=== PATIENT | female | born 1960 | race Caucasian/White ===

== ENCOUNTER → 2017-05-26 12:41 | Outpatient (CLI) | payer BC, SELFPAY ==
--- NOTE | 2017-05-26 12:44 | HPBI_ITS ---
MAMMOGRAPHY - BILATERAL SCREENING 3-D SALLY SYNTHESIS REASON FOR EXAM: Female, 57 years old. Bilateral Screening 3-D tomosynthesis PERTINENT HISTORY: No significant family history. TECHNIQUE: 2-D mammograms and 3-D Sally synthesis of the breast (s) were performed. CAD was performed. COMPARISON: 05/21/2016 and 12/28/2013 mammograms. FINDINGS: The breast composition is composed of scattered fibroglandular density. Scattered benign calcifications are seen. No dense spiculated masses or suspicious microcalcifications clusters are identified. No architectural distortion is identified. There is no adenopathy, skin thickening or nipple retraction identified. There has been no significant change since the prior study. HPBI/SCREENING MAMM (CAD), BILAT IMPRESSION: No mammographic signs of malignancy. Routine yearly mammograms recommended. ASSESSMENT CATEGORY: BIRADS Category 2: Benign. A letter regarding these results will be sent to the patient by the facility within 30 days. FOLLOW UP RECOMMENDATION: Yearly follow up mammogram recommended. (A) Approximately 10% of breast cancers are not detected by mammography. A normal mammogram should not delay biopsy of a clinically suspicious abnormality. Electronically Signed: Candido Casanova, at 20:48 EDT Tel , Service support ,
== END ==
PROVIDERS: Family Provider Internal Medicine; PCP Internal Medicine; Visit Provider Internal Medicine
DX: Z12.31 Encounter for screening mammogram for malignant neoplasm of breast (principal)
CPT/HCPCS: 77063; 77067

== ENCOUNTER → 2017-12-13 09:43 | Outpatient (CLI) | payer BC, SELFPAY ==
[2017-12-13 10:37] LABS: Hemoglobin A1c 5.2 % (4.2-6.3)
[2017-12-13 10:43] LABS: ALB/GLOB Ratio 1.1 RATIO (0.9-2.4); AST(SGOT) 12 U/L (15-37); Alanine Aminotransfer ALT/SGPT 17 U/L (13-56); Albumin, Serum 3.8 g/dL (3.2-5.0); Alkaline Phosphatase 58 U/L (45-117); Anion Gap 4 (5-15); BUN 14 mg/dL (7-18); BUN/Creat Ratio 16.8 RATIO (10-20); Calcium,Total 8.5 mg/dL (8.5-10.1); Chloride 107 mmol/L (98-107); Cholesterol 179 mg/dL (200); Creatinine, Serum 0.83 mg/dL (0.55-1.02); EST Glomerular Filtration Rate 75 mL/min (>60); Est Glom Filt Rate - Afr Amer 90 mL/min (>60); Globulin 3.4 g/dL (2.2-4.2); Glucose 90 mg/dL (74-106); High Density Lipoprotein 83 mg/dL; Potassium 4.1 mmol/L (3.5-5.1); Protein, Total 7.2 g/dL (6.4-8.2); Sodium Level 139 mmol/L (136-145); Triglycerides 44 mg/dL; Very Low Density Lipoprotein 9 mg/dL (5-40)
[2017-12-15 10:03] LABS: Vitamin B12 1057 pg/mL (211-911)
== END ==
PROVIDERS: Family Provider Internal Medicine; PCP Internal Medicine; Referring Provider Internal Medicine; Visit Provider Internal Medicine
DX: R73.09 Other abnormal glucose (principal); E53.8 Deficiency of other specified B group vitamins
CPT/HCPCS: 36415; 80053; 80061; 82607; 83036

== ENCOUNTER 2018-07-15 09:00 | Outpatient (RCR) | payer BC, SELFPAY ==
--- NOTE | 2018-06-17 13:23 | HP.PTEVAL ---
Patient's Visit Information KIM BLACKWOOD is a 58 year old F referred to Physical Therapy by Nayeli Roque DO with a diagnosis of LUMBAR RADICULOPATHY. Date of Evaluation: 06/17/18 Physical Therapist: Devante Goodman PT, Cert MDT, [facility] - Visit Plan Frequency: 2x /Week Duration: 4 Weeks Plan: INTERVENTIONS INCLUDE MANUAL THERAPY,JESSICA EX'S,DLS ABD /BACK,POSTURAL EX'S. MODALTIES - Subjective Findings: This 58 y/o female presents to physical therapy with lumbar radiculopathy for about 2 years. Intiatlly ,noticed lateral hip pain walking,then last years seen DR ludwin MATIAS. Symptoms intermittant ,but currently symptoms became worse in lumbar right > left lumbar to lateral hip to lateral leg/groin. Agrravating bending,lifting,housework tasks ,working, standing ,extending walking,sitting. Patient had x-rays .Patient had no prior treatment. Patient denies parathesia/tingling.Patient has left foot numbess from surgery. - Coughing/sneezing. Bowel/bladder -. Patient symptoms affect QOL and function. Patient pain impairs ADL'S and housework/JOB DEMNADS. SOCIAL: . VOCATION: [employer] - Pain Bilateral Back Pain Intensity (Out of 10): 10 Pain Intensity Range: 10 - Objective POSTURE: WFL. GAIT: normal aline. NEURO: ,reflexes L3-4,L4-5,L5-S1 2/3. SYMMTRIES: align. PALPATION: unremarkable. FLEXABLITY: hams min/mos tight,pirifirmis min tight. MMT: quads/hams 4-/5 right + anr,left 4/5,4-/5 hip flexion,ankle 4/5. LUMBAR ROM: flexion mod loss,extension mod loss,side glides mod loss - Special Tests L/S Slump test left side: Negative L/S Slump test right side: Negative L/S Left Straight Leg Raise: Negative L/S Right Straight Leg Raise: Negative Lumbar Standing: Flexion - Mechanical Response: No effect Lumbar Standing: Flexion - Symptoms During Testing: Increases Lumbar Standing: Flexion - Symptoms After Testing: Worse Lumbar Standing: Extension - Mechanical Response: No effect Lumbar Standing: Extension - Symptoms During Testing: Increases Lumbar Standing: Extension - Symptoms After Testing: No worse Lumbar Standing: Right Side Glides - Mechanical Response: No effect Lumbar Standing: Right Side [place] - Symptoms During Testing: No effect Lumbar Standing: Right Side [place] - Symptoms After Testing: No effect Lumbar Standing: Left Side [place] - Mechanical Response: No effect Lumbar Standing: Left Side [place] - Symptoms During Testing: No effect Lumbar Standing: Left Side [place] - Symptoms After Testing: No effect Lumbar Lying: Flexion - Mechanical Response: No effect Lumbar Lying: Flexion - Symptoms During Testing: No effect Lumbar Lying: Flexion - Symptoms After Testing: No effect Lumbar Lying: Extension - Mechanical Response: No effect Lumbar Lying: Extension - Symptoms During Testing: Decreases Lumbar Lying: Extension - Symptoms After Testing: Better - Goals Goal 1:: Independant with HEP Goal Time Frame: 4-6 Weeks Goal 2:: Patient to be Independant with posture/body mechanics Goal Time Frame: 4-6 Weeks Goal 3:: Patient to decrease pain by 50% or greater to improve function. Goal Time Frame: 4-6 Weeks Goal 4:: Patient to improve lumbar ROM for function of recovery. Goal Time Frame: 4-6 Weeks Goal 5:: Patient to improve strength BLE -HIPS TO 4/5 to improve strength/function. Goal Time Frame: 4-6 Weeks Goal 6:: Patient to improve back owestry score by 5-8 points to improve QOL. Goal Time Frame: 4-6 Weeks - Rehabilitation Potential Physical Therapy Diagnosis: This 58 y/o female presents to physical therapy with lumbar radiculopathy with possibel disc involvement with decrease lumbar ROM,pain ,weakness core/legs hips,tus beinifit from skilled PT. Rehabilitation Potential: Good - Anticipated Interventions Patient/Client Instruction: Educate patient on: Condition, Plan of Care For the Purpose of:: To decrease pain, To increase ROM, To improve muscle performance and motor function, To improve performance and independence with ADL's, To improve ability of physical actions for home/community/work/leisure, To improve health of tissue, To decrease soft tissue restriction, To increase flexibility/ROM, To reduce risk of recurrence, To improve ability to perform tasks related to life management Therapeutic Exercise to Include: Strength training, Body mechanics, Postural training, Flexibilty training, Dynamic Lumbar Stabilization, Jessica Exercises For the Purpose of:: To decrease pain, To improve muscle performance and motor function, To increase tolerance to activity/condition/position, To improve ability of physical actions for home/community/work/leisure, To improve gait and locomotor functions, To decrease soft tissue restriction, To increase flexibility/ROM, To reduce risk of recurrence, To improve ability to perform tasks related to life management Manual Therapy Techniques to Include: Mobilization Comment: LUMBAR For the Purpose of:: To decrease pain, To increase ROM, To increase oxygenation perfusion, To improve health of tissue, To decrease soft tissue restriction, To increase flexibility/ROM, To prevent re-injury, To improve ability to perform tasks related to life management TENS: Yes IF ES: Yes Cryotherapy (ice pack, ice massage): Yes Thermo therapy (hot pack): Yes Ultrasound (thermal/non thermal): Yes For the Purpose of:: To decrease pain, To increase ROM, To improve health of tissue, To decrease soft tissue restriction Thank you for the opportunity to evaluate your patient. For Medicare and Medicare HMO plans, please review the plan of care and approve it. It will need to be FAXED BACK to us at [phone] for Medicare purposes. For Medicare only, by signing this I certify the plan of care. Please let me know if there are questions or concerns regarding this plan of care. Physician Signature: Date:
--- NOTE | 2018-10-15 15:46 | HP.PT.NRP ---
HP - Discharge Summary (1) - Patient Information KIM BLACKWOOD was seen in my office for initial evaluation on 06/17/18. The following Plan of Care was established for this patient: Initial Frequency: 2x /Week Initial Duration: 4 Weeks - Anticipated Interventions Patient/Client Instruction: Educate patient on: Condition, Plan of Care For the Purpose of:: To decrease pain, To increase ROM, To improve muscle performance and motor function, To improve performance and independence with ADL's, To improve ability of physical actions for home/community/work/leisure, To improve health of tissue, To decrease soft tissue restriction, To increase flexibility/ROM, To reduce risk of recurrence, To improve ability to perform tasks related to life management Therapeutic Exercise to Include: Strength training, Body mechanics, Postural training, Flexibilty training, Dynamic Lumbar Stabilization, Jessica Exercises For the Purpose of:: To decrease pain, To improve muscle performance and motor function, To increase tolerance to activity/condition/position, To improve ability of physical actions for home/community/work/leisure, To improve gait and locomotor functions, To decrease soft tissue restriction, To increase flexibility/ROM, To reduce risk of recurrence, To improve ability to perform tasks related to life management Manual Therapy Techniques to Include: Mobilization Comment: LUMBAR For the Purpose of:: To decrease pain, To increase ROM, To increase oxygenation perfusion, To improve health of tissue, To decrease soft tissue restriction, To increase flexibility/ROM, To prevent re-injury, To improve ability to perform tasks related to life management TENS: Yes IF ES: Yes Cryotherapy (ice pack, ice massage): Yes Thermo therapy (hot pack): Yes Ultrasound (thermal/non thermal): Yes For the Purpose of:: To decrease pain, To increase ROM, To improve health of tissue, To decrease soft tissue restriction This patient was last seen in our office 07/15/18. Pertinent comments regarding their Physical therapy will appear below: Patient seen for PT for low back pain with PT focusing on JESSICA ex's ,DLS,lumbar traction. Patient had MRI after 9 visits then return to MD. At this point I will be discontinuing this patient from physical therapy. I would be happy to see this patient again in the future if found appropriate by the physician. Thank you! Devante Goodman, PT, Cert MDT, [facility]
== END 2018-07-15 19:00 | disposition home or self-care (01) ==
LOC: PT 09:00
PROVIDERS: Family Provider Internal Medicine; PCP Internal Medicine; Referring Provider Internal Medicine; Visit Provider Internal Medicine
DX: M54.16 Radiculopathy, lumbar region (principal)
CPT/HCPCS: 97012; 97014; 97032; 97035; 97110; 97162; G0283

== ENCOUNTER → 2018-07-16 16:40 | Outpatient (CLI) | payer BC, SELFPAY ==
--- NOTE | 2018-07-16 16:59 | MRI_ITS ---
STUDY: MRI LUMBAR SPINE WITHOUT CONTRAST REASON FOR EXAM: Female, 58 years old. Back pain shooting down right leg TECHNIQUE: Standardized fat and water weighted pulse sequences were obtained in the sagittal and axial planes. COMPARISON: Radiographic study on May 21, 2016 FINDINGS: T12-L1: Normal endplates. Normal disc height, hydration and morphology. Normal bilateral facet joints. Normal central canal and bilateral lateral recesses. Normal bilateral intervertebral neural foramina. Normal lumbar lordosis. There is no substantial scoliosis. Normal conus medullaris that terminates at the L1-2: Normal endplates. Normal disc height hydration and morphology. Normal bilateral facet joints. Normal central canal and bilateral lateral recesses. Normal bilateral intervertebral neural foramina L2-3: Normal endplates. Normal disc height, desiccation and minor annular bulge.. Normal bilateral facet joints. Normal central canal and bilateral lateral recesses. Normal bilateral intervertebral neural foramina. L3-4: Minor endplate spurring.. Normal disc height, desiccation and mild annular bulge.. Normal bilateral facet joints. Mild narrowing of the central canal. Normal bilateral recesses.. Mild bilateral neural foraminal encroachment. L4-5: Minor endplate spurring. Normal disc height, desiccation and mild annular bulge.. Bilateral facet arthropathy.. Mild narrowing of the central canal. Normal bilateral lateral recesses. Moderate bilateral neuroforaminal stenosis L5-S1: Degenerative endplate changes. Narrowed disc space with desiccation of disc and minor bulging of the annulus. Bilateral facet arthropathy. Normal central canal. Normal bilateral recesses. Moderate bilateral neuroforaminal stenosis. Normal visualized sacral ala. Normal visualized paraspinous soft tissue structures. MRI/Spine Lumbar (Routine) IMPRESSION: No evidence for acute fracture or subluxation. Spinal stenosis at L3-4, L4-5 and L5-S1 secondary to bulging annuli and facet arthropathy. Electronically Signed: Ronald Saleh MD at 18:14 EDT , Service support ,
== END ==
PROVIDERS: Family Provider Internal Medicine; PCP Internal Medicine; Referring Provider Internal Medicine; Visit Provider Internal Medicine
DX: M54.16 Radiculopathy, lumbar region (principal)
CPT/HCPCS: 72148

== ENCOUNTER → 2018-12-22 14:37 | Outpatient (CLI) | payer BC, SELFPAY ==
--- NOTE | 2018-12-22 14:38 | RAD_ITS ---
STUDY: X-RAY - LUMBAR SPINE REASON FOR EXAM: Female, 58 years old. Pain. TECHNIQUE: 4 view(s) of the lumbar spine were obtained. COMPARISON: None FINDINGS: Normal lumbar lordosis. There is no substantial scoliosis. There is a normal alignment of the vertebrae. There is multilevel endplate spondylosis of the lumbar vertebrae. There is multi-level degenerative disc disease with multi-level disc space narrowing. There is no evidence of acute fracture or loss of vertebral axial height. There is no alteration of alignment with flexion or extension. The soft tissue structures are unremarkable. RAD/L/S Spine Min 4 Views IMPRESSION: Degenerative changes of the spine, as detailed above. Electronically Signed: Cralos Collier DO at 20:30 EDT Tel [phone], Service support ,
== END ==
PROVIDERS: Family Provider Internal Medicine; PCP Internal Medicine; Referring Provider Orthopaedic Surgery; Visit Provider Orthopaedic Surgery
DX: M54.5 Low back pain (principal)
CPT/HCPCS: 72110

== ENCOUNTER 2019-01-08 08:11 | Outpatient (RCR) | payer BC, SELFPAY ==
--- NOTE | 2019-01-08 10:00 | HP.PTEVAL ---
Patient's Visit Information KIM BLACKWOOD is a 58 year old F referred to Physical Therapy by Dea Sarmiento MD with a diagnosis of B IT band syndrome. Date of Evaluation: 01/08/19 Physical Therapist: Guillaume Naylor, PT, ATC - Visit Plan Frequency: 1x/Week Duration: 1 Week Plan: Pt was issued a HEP routine and is I with HEP at this time. Discharge - Subjective Findings: Pt reports she has had B hip and LBP for 2 years. 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 Pt reports she is seeing a doctor for injections for her LBP, but also has pain in B hips which has been diagnosed as bursitis. 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 Pt reports she has had PT in the past which only resulted in temporary benefits. Pt notes occasional B LE radiculopathy the extends to the mid calf region. sleep difficulty secondary to pain. Pt notes she has had an MRI which revealed degenerative changes. 4/10 at rest, much more at worst 10/10 - Pain LBP Pain Intensity (Out of 10): 4 Pain Intensity Range: 10 - Objective Neuro: B LE sensation is WNL to lght touch. B patellar reflex= 2/3. MMT: B LE's are rated at 4/5 and are limited with LBP. Palpation: Pt is verry sore along distribution of B IT bands. No obvious deformity noted. L/S ROM: WNL. 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 For Medicare and Medicare HMO plans, please review the plan of care and approve it. It will need to be FAXED BACK to us at [phone] for Medicare purposes. For Medicare only, by signing this I certify the plan of care. Please let me know if there are questions or concerns regarding this plan of care. Physician Signature: Date:
== END 2019-01-08 17:00 | disposition home or self-care (01) ==
LOC: PT 08:11
PROVIDERS: Family Provider Internal Medicine; PCP Internal Medicine; Referring Provider Orthopaedic Surgery; Visit Provider Orthopaedic Surgery
DX: M70.61 Trochanteric bursitis, right hip (principal); M70.62 Trochanteric bursitis, left hip; M54.10 Radiculopathy, site unspecified
CPT/HCPCS: 97161

== ENCOUNTER → 2019-01-14 08:00 | Outpatient (CLI) | payer BC, SELFPAY ==
--- NOTE | 2019-01-14 08:03 | BI_ITS ---
MAMMOGRAPHY - BILATERAL SCREENING REASON FOR EXAM: Female, 58 years old. Routine annual screening examination. PERTINENT HISTORY: Non-contributory. TECHNIQUE: Digital bilateral breast sally (3D mammographic acquisition) in the CC and MLO projections. 2-D mediolateral oblique (MLO) and craniocaudad (CC) views of both breasts were obtained. CAD: Full Field Digital Mammography with Computer Added Detection was performed. COMPARISON: Comparison is made with prior study of May 26, 2017 and May 21, 2016. FINDINGS: Breast Composition: There are scattered areas of fibroglandular density. There are no dominant masses or suspicious calcifications. No other significant abnormalities are identified. There has been no significant change since the prior study. BI/SCREEN MAMM (CAD) W/SALLY BILAT IMPRESSION: Stable bilateral screening mammogram. Yearly follow-up mammogram recommended. (A) ASSESSMENT CATEGORY: BIRADS Category 1: Negative. A letter regarding these results will be sent to the patient by the facility within 30 days. Approximately 10% of breast cancers are not detected by mammography. A normal mammogram should not delay biopsy of a clinically suspicious abnormality. [id number] Electronically Signed: Chaparro Montoya, at 9:35 EST , Service support ,
== END ==
PROVIDERS: Family Provider Internal Medicine; PCP Internal Medicine; Referring Provider Internal Medicine; Visit Provider Internal Medicine
DX: Z12.31 Encounter for screening mammogram for malignant neoplasm of breast (principal)
CPT/HCPCS: 77063; 77067

== ENCOUNTER 2020-05-26 16:34 | Outpatient (RCR) | payer BC, SELFPAY | END 2020-05-26 23:59 | LOC: IMMUN 16:34 | PROVIDERS: Referring Provider Family Medicine; Visit Provider Family Medicine | DX: Z23 Encounter for immunization (principal) | CPT/HCPCS: 0001A; 91300 ==

== ENCOUNTER → 2022-06-06 | Outpatient (CLI) | payer BC, SELFPAY ==
--- NOTE | 2022-06-06 09:19 | BI_ITS ---
MAMMOGRAPHY - BILATERAL SCREENING REASON FOR EXAM: Female, 62 years old. Routine annual screening examination. PERTINENT HISTORY: Non-contributory. TECHNIQUE: Digital bilateral breast sally (3D mammographic acquisition) in the CC and MLO projections. 2-D mediolateral oblique (MLO) and craniocaudad (CC) views of both breasts were obtained. CAD: Full Field Digital Mammography with Computer Added Detection was performed. COMPARISON: Comparison is made with prior study of January 14, 2019 and May 26, 2017. FINDINGS: Breast Composition: There are scattered areas of fibroglandular density. There are no dominant masses or suspicious calcifications. No other significant abnormalities are identified. There has been no significant change since the prior study. BI/SCRN MAMM (CAD)W/SALLY BILAT IMPRESSION: Stable bilateral screening mammogram. Yearly follow-up mammogram recommended. (A) ASSESSMENT CATEGORY: BIRADS Category 1: Negative. A letter regarding these results will be sent to the patient by the facility within 30 days. Approximately 10% of breast cancers are not detected by mammography. A normal mammogram should not delay biopsy of a clinically suspicious abnormality. [id number] Electronically Signed: Chaparro Montoya MD at 10:37 EDT ,
--- NOTE | 2022-06-06 09:20 | BD_ITS ---
STUDY: DUAL ENERGY X-RAY ABSORPTIOMETRY / DXA REASON FOR EXAM: Female, 62 years old. [id number] -- postmenopausal TECHNIQUE: Bone Mineral Density (BMD) measurements of lumbar spine and bilateral hips were obtained. COMPARISON: Comparison is made with prior study dated May 21, 2016. FINDINGS: Lumbar Spine (L1-L4): g/cm2 (0.910) / T-score (-1.2) / Z-score (0.4) Findings are suggestive of osteopenia with a low fracture risk. Left Femur Total: g/cm2 (0.893) / T-score (-0.4) / Z-score (0.7) Left Femoral Neck: g/cm2 (0.726) / T-score (-1.1) / Z-score (0.3) Right Femur Total: g/cm2 (0.831) / T-score (-0.9) / Z-score (0.2) Right Femoral Neck: g/cm2 (0.851) / T-score (0.0) / Z-score (1.4) The T-Scores on the most recent prior examination were: Lumbar Spine (L1-L4): There has been worsening of bone density since the previous examination. Left Femur Total: which represents a worsening of 5.1%. Right Femur Total: which represents a worsening of 8.7%. BD/Dexa Bone Density Study IMPRESSION: The patient is considered osteopenic as outlined below according to World [place] Organization (WHO) criteria with a low fracture risk. There has been worsening of bone density since the previous examination. Reference Information: The T-score is the number of standard deviations above or below the standard which is normal for young adults at their peak bone mineral density. The World Health Organization (WHO) interprets the T-scores as follows: Above -1 Normal bone density Between -1 and -2.5 Osteopenia Equal to / or below -2.5 Osteoporosis As a practical clinical guideline, osteopenia may be graded as follows: Mild -1 through -1.5 Moderate -1.6 through -2.0 Severe -2.1 through -2.4 The Z-score is the number of standard deviations above or below age-matched controls. A Z-score of less than -1.5 would be considered abnormal. References: 1. NIH Osteoporosis and Related Bone Diseases www osteo.org 2. International Society for Clinical Densitometry www iscd.org 3. National Osteoporosis Foundation www nof.org Electronically Signed: Chaparro Montoya MD at 12:44 EDT ,
== END | disposition home or self-care (01) ==
LOC: OPBD 09:18
PROVIDERS: PCP Internal Medicine; Visit Provider Internal Medicine
DX: Z13.820 Encounter for screening for osteoporosis (principal); Z78.0 Asymptomatic menopausal state; Z12.31 Encounter for screening mammogram for malignant neoplasm of breast
CPT/HCPCS: 77063; 77067; 77080

== ENCOUNTER → 2023-10-29 | Outpatient (CLI) | payer BC, SELFPAY ==
--- NOTE | 2023-10-29 08:43 | BI_ITS ---
MAMMOGRAPHY - BILATERAL SCREENING REASON FOR EXAM: Female, 63 years old. Routine annual screening examination. PERTINENT HISTORY: Non-contributory. TECHNIQUE: Digital bilateral breast sally (3D mammographic acquisition) in the CC and MLO projections. 2-D mediolateral oblique (MLO) and craniocaudad (CC) views of both breasts were obtained. CAD: Full Field Digital Mammography with Computer Added Detection was performed. COMPARISON: Comparison is made with prior study June 06, 2022 and January 14, 2019. FINDINGS: Breast Composition: There are scattered areas of fibroglandular density. There are no dominant masses or suspicious calcifications. No other significant abnormalities are identified. There has been no significant change since the prior study. BI/SCRN MAMM (CAD)W/SALLY BILAT IMPRESSION: Stable bilateral screening mammogram. Yearly follow-up mammogram recommended. (A) ASSESSMENT CATEGORY: BIRADS Category 1: Negative. A letter regarding these results will be sent to the patient by the facility within 30 days. Approximately 10% of breast cancers are not detected by mammography. A normal mammogram should not delay biopsy of a clinically suspicious abnormality. [id number] Electronically Signed: Chaparro Montoya MD at 9:33 EDT ,
== END | disposition home or self-care (01) ==
LOC: OPBI 08:40
PROVIDERS: PCP Internal Medicine; Referring Provider Internal Medicine; Visit Provider Internal Medicine
DX: Z12.31 Encounter for screening mammogram for malignant neoplasm of breast (principal)
CPT/HCPCS: 77063; 77067

== ENCOUNTER → 2024-11-22 | Outpatient (CLI) | payer BC, SELFPAY ==
--- NOTE | 2024-11-22 13:19 | BI_ITS ---
EXAM: SCRN MAMM (CAD)W/SALLY BILAT DATE: 11/22/2024 CLINICAL HISTORY: F, Age 64 y/o , BILAT BRST SCREEN SALLY ADD-ON TECHNIQUE: Procedure Code: [id number] Modality: MG Procedure: SCRN MAMM (CAD)W/SALLY BILAT COMPARISON: Prior exam(s) were compared FINDINGS: TISSUE DENSITY: The breasts are heterogeneously dense, which may obscure small masses. Bilateral Breast Mammographic Findings: No suspicious masses, calcifications or other abnormalities are identified. BI/SCRN MAMM (CAD)W/SALLY BILAT IMPRESSION: No mammographic evidence of malignancy in either breast. OVERALL FINAL ASSESSMENT BI-RADS 1: NEGATIVE. RECOMMENDATION: Routine annual follow-up in 1 Year Additional Recommendation none A letter with findings and recommendations will be mailed to the patient. Reading Location: [id number]
== END | disposition home or self-care (01) ==
LOC: OPBI 13:18
PROVIDERS: PCP Internal Medicine; Referring Provider Internal Medicine; Visit Provider Internal Medicine
DX: Z12.31 Encounter for screening mammogram for malignant neoplasm of breast (principal)
CPT/HCPCS: 77063; 77067

== ENCOUNTER → 2024-11-29 | Outpatient (CLI) | payer BC, SELFPAY ==
--- OUTSIDE RECORDS SUMMARY | 2024-11-23 12:40 | XMS RPT_ITS ---
Author Name Auto Generated Organization OHIP Care Team Providers Care Coronary Clinical Specialist Name Role Phone JOSH ROCHA Attending Unavailable SCANNING, GENERIC PROVIDER Referring Unava ilable FAST, GISELA A Primary Care Unavailable JOSH ROCHA Referring Unavailable FAST, GISELA A Primary Care Unavailable JOSH ROCHA Attending Unavailable FAST, GISELA A Primary Care Unavailable JOSH ROCHA Attending Unavailable FAST, GISELA A Primary Care Unavailable OJSH ROCHA Admitting Unavailable JOSH ROCHA Attending Unavailable FAST, GISELA A Primary Care Unavailable JOSH ROCHA Referring Unavailable FAST, GISELA A Primary Care Unavailable CLINT CARRERO Referring Unavailable FAST, GISELA A Primary Care Unavailable FAST, GISELA A Primary Care Unavailable CLINT CARRERO Referring Unavailable FAST, GISELA A Primary Care Unavailable JOSH ROCHA Referring Unavailable FAST, GISELA A Primary Care Unavailable JOSH ROCHA Referring Unavailable FAST, GISELA A Primary Care Unavailable FAST, GISELA A Primary Care Unavailable DEVYN GARCIA Admitting Unavailable BON ELENA Attending Unavailable BLANCA WALSH Consulting Unavailable PATSY NG Referring Unavailable FAST, GISELA A Primary Care Unavailable PROBLEMS DATE TYPE CONDITION / CODE ATTENDING STATUS [facility] 11/23/2024 Active Pulmonary HTN (H CC) / I27.20(ICD-10) NA Active [facility] 08/18/2024 Admitting Diagnosis Unilateral primary osteoarthritis, right hip / M16.11(ICD-10) JOSH ROCHA [facility] 10/01/2024 Admitting Diagnosis Pain in right knee / M25.561(ICD-10) JOSH ROCHA [facility] 10/01/2024 Admitting Diagnosis Pain in left knee / M25.562(ICD-10) JOSH ROCHA [facility] 10/01/2024 Admitting Diagnosis Other chronic pain / G89.29(ICD-10) JOSH ROCHA [facility] 08/20/2024 Active Bilateral pulmon arcenio embolism (HCC) / I26.99(ICD-10) BON ELENA Active [facility] 08/20/2024 Active Acute pulmonary embolism, unspecified pulmonary embolism type, unspecified whether acute cor pulmonale present (HCC) / I26.99(ICD-10) [facility] 08/20/2024 Active Shortness of josue ath / R06.02(ICD-10) [facility] 08/20/2024 Active Syncope, unspeci fied syncope type / R55(ICD-10) [facility] 07/28/2024 Admitting Diagnosis Encounter for other preprocedural examination / Z01.818(ICD-10) NA [facility] 06/18/2024 Admitting Diagnosis Pain in right hip / M25.551(ICD-10) JOSH ROCHA [facility] PROCEDURES No Procedure Records Found RESULTS ECHO Observed: 11/23/2024 12:57 PM Status: F Source: [facility] Echocardiography Report: Tra nsthoracic Echo [facility] Date of service: 11/23/2024 12:57:39 PM [employer]ER Ordering physician: PATSY NG Exam indication: PE Technologist: Marisela Strange RD Interpreting physician: Gilberto Meier MD PATIENT: Name: BEKAH SALGADO : 1960 Age: 64 years Gender: F Primary rhythm: sinus. Height: 182.90 cm BSA: 2.27 m Weight: 101.00 kg BMI: 30.2 kg/m Heart rate 76 bpm Blood pressure 130/79 mmHg Technically difficult exam due to body habitus. Color Doppler was utilized to interrogate the cardiac valves assessed and spectral Doppler was utilized to determine the flow velocities and pressure gradients reported in this exam. Myocardial strain analysis was performed in this exam to aid in the assessment of cardiac function. MEASUREMENTS: Value Indexed Normal Max aortic dimension 3.2 cm Ao < 3.8 Left atrial volume 50 ml (biplane A-L) 22 ml/m Simon <= 34 LV ID (diastole) 4.4 cm (2D) 1.92 cm/m LV ID (systole) 2.4 cm (2D) 1.08 cm/m IVS, leaflet tips 0.9 cm (2D) Posterior wall thickness 0.9 cm (2D) Left ventricular mass 127 g (2D) 56 g/m Global peak long strain -18.0 % LV stroke volume 50 ml (2D biplane) LV end diastolic volume 81 ml (2D biplane) 35.8 ml/m 29<=EDVi<62 LV end systolic volume 31 ml (2D biplane) 13.6 ml/m Ejection Fraction 62 % (2D biplane) EF > 54 FINDINGS: LEFT VENTRICLE The left ventricle is normal in size. Left ventricular systolic function is normal. Global LV myocardial strain is normal. Grade I left ventricular diastolic dysfunction. Mitral annular lateral E/e': 3.6. Mitral annular septal E/e': 6.2. Wall Motion: All scored segments are normal. RIGHT VENTRICLE The right ventricle is normal in size. Right ventricular systolic function is normal. RV systolic tissue Doppler velocity is 14.0 cm/s. Tricuspid annular displacement is 1.9 cm. Estimated right ventricular systolic pressure is 23 mmHg consistent with normal pulmonary artery pressures. Estimated right atrial pressure is 3 mmHg (although IVC not seen). LEFT ATRIUM The left atrial cavity is normal in size. RIGHT ATRIUM The right atrial cavity is normal in size (RA area = 14.2 cm ) . Inferior Vena Cava: The inferior vena cava appears normal measuring 1.70 cm. MITRAL VALVE The mitral valve leaflets are structurally normal. There is no mitral valve regurgitation. The pressure half time is 63 msec. The peak mitral E/A ratio is 0.76. The average mitral E/e' ratio is 4.9. The mitral flow deceleration time is 218 msec. TRICUSPID VALVE The tricuspid valve leaflets are structurally normal. There is trace (trace - 1+) tricuspid valve regurgitation. AORTIC VALVE The aortic valve cusps are structurally normal. There is no aortic valve regurgitation. Tricuspid aortic valve. The peak gradient is 6 mmHg (peak velocity = 124.8 cm/s). PULMONIC VALVE The pulmonic valve cusps are structurally normal. There is no pulmonic valve regurgitation. AORTA The visualized aorta is normal in size. Measurements - Mid ascending aorta 3.2 cm. INTERATRIAL SEPTUM There is no evidence of intracardiac shunting as detected by Doppler. PERICARDIUM There is no pericardial effusion. There is an epicardial fat pad. CONCLUSIONS: - Technically difficult exam due to body habitus. - Exam indication: PE - The left ventricle is normal in size. Left ventricular systolic function is normal. EF = 62 5% (2D biplane) Grade I left ventricular diastolic dysfunction. - The right ventricle is normal in size. Right ventricular systolic function is normal. - There are no significant valvular abnormalities. - The patient has not had a prior CC echocardiographic exam for comparison. * * * Final * * * CC [facility] Image : [id number] XR KNEE 4+ VIEWS BILATERAL Observed: 03/2024 9:01 AM Status: F Source: [facility] Interpreted By: Sujey Gordon, STUDY: Bilateral knees, 4 views each. INDICATION: Signs/Symptoms:PAIN. COMPARISON: None. ACCESSION NUMBER(S): [id number] ORDERING CLINICIAN: JOSH ROCHA FINDINGS: No acute fracture or malalignment of the bilateral knees. Bilateral knee joint spaces are maintained. No significant joint effusion bilaterally. Mild bilateral medial and patellofemoral compartment osteoarthrosis with osteophytes. IMPRESSION: 1. Mild bilateral medial and patellofemoral compartment osteoarthrosis with osteophytosis. MACRO: None. Signed by: Nancy Gordon 10/02/2024 8:18 AM Dictation workstation: [id number] XR HIP RIGHT WITH PELVIS WHEN PERFORMED 2 OR 3 VIEWS Observed: 10/01/2024 8:28 AM Status: F Source: [facility] Interpreted By: Sujey Gordon, STUDY: Single view pelvis. Two views right hip. INDICATION: Signs/Symptoms:AFTERCARE R HIP REPLACEMENT/OSTEOARTHRITIS COMPARISON: XR PELVIS 1-2 VIEWS 08/18/2024. ACCESSION NUMBER(S): [id number] ORDERING CLINICIAN: JOSH ROCHA FINDINGS: No acute fracture or malalignment. Patient is status post right total hip arthroplasty. No perihardware fractures or lucencies. Alignment is anatomic. Left hip joint space is well maintained. IMPRESSION: 1. Right total hip arthroplasty without hardware complication. MACRO: None. Signed by: Nancy Gordon 10/02/2024 8:17 AM Dictation workstation: [id number] PROGRESS Observed: 08/22/2024 4:31 PM Status: COMPLETED Source: [facility] HNO ID: [id number] Author: BON ELENA MD Service: Hospital Medicine Author Type: Physician Type: Progress Notes Filed: 08/24/2024 16:19 Note Text: Documentation Query Please specify a diagnosis associated with the Clinical Indicators for this patient Obesity Class 1 This document will become part of the patient's medical record. NURSING PROG Observed: 08/22/2024 4:17 PM Status: COMPLETED Source: [facility] HNO ID: [id number] Author: JOSE ALBERTO SPAULDING RN Service: ADT-MICU Author Type: Registered Nurse Type: Nursing Progress Note Filed: 08/22/2024 16:18 Note Text: Pt AND Louie given D/c instructions [facility] to main lobby, picked pt up CASE MANAGEM Observed: 08/22/2024 4:04 PM Status: COMPLETED Source: [facility] HNO ID: [id number] Author: NUSRAT SHAH RN Service: Care Management Author Type: Registered Nurse Type: Care Mgt Progress Note Filed: 08/22/2024 16:05 Note Text: CARE MANAGEMENT DISCHARGE NOTE SERVICE DATE: August 22, 2024 SERVICE TIME: 4:04 PM Admission Date: 08/20/2024 LOS: 2 days Discharge Arrangement Discharge Arrangement: Home with Home Health Services Arranged Medical Services: Skilled Home Health Care Type: Home Health Agency Provider Name: [facility] (For [facility] Facilities Only) [phone] Caregiver Assessment Caregiver is ready, willing and able to meet the patient's needs as recommended by the inter-professional team: Yes Name of Caregiver: spouse Transportation Arrangements Transportation Arrangements: Car Handoff Communication: Handoff to: Primary Care Physician Primary Care Physician Name/Phone: Gisela Roque DO PCP - General, Internal Medicine Since 08/20/2024 Additional Information: Patient to discharge home with [facility]. Family to transport. SIGNATURE: Nusrat Shah RN PATIENT NAME: Bekah Salgado DATE: August 22, 2024 TIME: 4:04 PM PT ED Observed: 08/22/2024 3:24 PM Status: COMPLETED Source: [facility] HNO ID: [id number] Author: SOLA MILNER RPh Service: Pharmacy Author Type: Pharmacist Type: Patient Education Filed: 08/22/2024 15:52 Note Text: PHARMACY ANTICOAGULATION EDUCATION Patient Name: Bekah Salgado Account #: Data Unavailable Admission Date: 08/20/2024 2:07 AM Date of Contact: August 22, 2024 Time of Contact: 3:24 PM Patient anticipated to be discharged on Apixaban as oral anticoagulation therapy. Anticoagulant history: Patient is new to anticoagulation therapy Indication for oral anticoagulation: deep vein thrombosis (DVT) and pulmonary embolus (PE) Anticoagulant education status: Patient received full anticoagulation education Reason for taking anticoagulation How this anticoagulant works When to take medication and what to do if a dose is missed Drug interactions (Rx, OTC, herbal) and importance of notifying the doctor with any changes Do not take or discontinue any medication or over the counter medication except on the advice of the physician or pharmacist Signs/symptoms of bleeding and what to do if they occur Precautionary measures to decrease trauma/bleeding Signs/symptoms of thrombosis and what to do if they occur Need to limit or avoid alcohol consumption Carrying identification Importance of notifying healthcare provider when hospitalizations occur and when another healthcare provider has asked them to stop/hold anticoagulation medication before any procedure Importance of notifying all healthcare providers they are taking an anticoagulant Use of control measures, if applicable The importance of taking anticoagulation medication as instructed and the potential ramifications of non-compliance were explained to the patient The patient was provided supplemental material which includes the following topics: side effects, potential adverse drug reactions, drug interactions, compliance issues, follow-up with physician, and follow-up monitoring. Sola Milner RPh CNDS Observed: 08/22/2024 3:18 PM Status: COMPLETED Source: [facility] HNO ID: [id number] Author: BON ELENA MD Service: Hospital Medicine Author Type: Physician Type: Discharge Summary Filed: 08/22/2024 15:23 Note Text: DISCHARGE SUMMARY PATIENT NAME: Bekah Salgado ADMISSION DATE: 08/20/2024 DISCHARGE DATE: 08/22/2024 Attending Physician: Bon Elena MD Reason for Hospitalization: shortness of breath Principal Problem: Bilateral pulmonary embolism (HCC) (POA: Yes) Active Problems: Acute cor pulmonale (HCC) (POA: Unknown) Acute hypoxemic respiratory failure (HCC) (POA: Unknown) S/P total right hip arthroplasty (POA: Unknown) Lactic acidosis (POA: Unknown) Deep vein thrombosis (DVT) of proximal lower extremity (HCC) (POA: Unknown) Resolved Problems: * No resolved hospital problems. * Operations During Hospitalization: None Procedures During Hospitalization: Echocardiogram Hospital Course: Patient is a pleasant 64-year-old female with past medical history of osteoarthritis and hyperlipidemia, recent right hip total arthroplasty. [facility] on 08/18 presented to the ER with worsening shortness of breath and near syncopal event. Patient was noted to be hypoxic in the ER. Further workup with CT study showed bilateral pulmonary emboli. PERT team was called and patient was initially admitted to medical intensive care unit. Lower extremity Doppler showed right lower extremity calf DVT. Echocardiogram done showed LVEF of 68% with moderate pulmonary hypertension with no evidence of right heart strain. Patient seen by vascular surgeon and recommended no mechanical thrombectomy as patient remained stable. X-rays of the right hip showed no acute postsurgical complication. Patient seen by orthopedics and recommended weightbearing as tolerated. As patient remained hemodynamically stable heparin was switched to Eliquis at discharge. Patient remained comfortable on room air. She is evaluated by PT/OT who recommended home with home care at discharge. Patient was recommended to follow-up with pulmonology and will need a repeat echocardiogram in 3 months. Labs and Procedures Pending at Discharge: No pending results. Consulting Teams During Hospitalization: Surgery : Vascular and Orthopaedics Patient Condition @ Discharge: Stable Discharge Disposition: Home with Home Health FOLLOW UP: with PCP in 1 week I Discharge Medications: Medication List START taking these medications ELIQUIS DVT-PE TREAT 30D START 5 mg (74 tabs) Generic drug: apixaban Take 2 tablets (10 mg) by mouth twice daily for 7 days. Then take 1 tablet (5 mg) by mouth twice daily for 23 days CONTINUE taking these medications acetaminophen 500 mg tablet Commonly known as: TYLENOL ARGININE (L-ARGININE) ORAL BIOTIN ORAL cyanocobalamin (vitamin B-12) 2,000 mcg Tab docusate sodium 100 mg capsule Commonly known as: COLACE Fish OiL 1,000 (120-180) mg Cap Generic drug: Jllqx-0-IAB-EPA-Fish Oil oxyCODONE IR 5 mg immediate release tablet Commonly known as: ROXICODONE pantoprazole DR 40 mg tablet Commonly known as: PROTONIX polyethylene glycol 3350 17 gram packet TURMERIC ORAL Vitamin D 1,000 unit Tab tablet Generic drug: cholecalciferol STOP taking these medications Aspirin 81 mg Tab meloxicam 15 mg tablet Commonly known as: MOBIC traMADol 50 mg tablet Commonly known as: ULTRAM Where to Get Your Medications These medications [id number] [place] [address] - [address] [facility] - [phone] ACROSS FROM [address] [address] ELIQUIS DVT-PE TREAT 30D START 5 mg (74 tabs) I have performed the rkrm-av-jesl and relevant services for a total of 45 minutes. Highest Readmission Risk Score: 9 The 30 day readmissions risk score is derived from an internally validated risk model which evaluates patient level characteristics, utilization history, medication orders and lab results up until the day of discharge. Patients with a score of 39 or above are considered highest risk for readmission. Specific patient level drivers will be listed at the bottom of the summary. The 30 day readmissions risk score is derived from an internally validated risk model which evaluates patient level characteristics, utilization history, medication orders and lab results up until the day of discharge. Patients with a score of 40 or above are considered highest risk for readmission. Specific patient level drivers will be listed at the bottom of the summary. SIGNATURE: Bon Elena MD PAGER: DATE: August 22, 2024 TIME: 3:18 PM PROGRESS Observed: 08/22/2024 3:00 PM Status: COMPLETED Source: [facility] HNO ID: [id number] Author: BON ELEAN MD Service: Hospital Medicine Author Type: Physician Type: Progress Notes Filed: 08/22/2024 15:02 Note Text: INPATIENT PROGRESS NOTE CHIEF COMPLAINT: shortness of breath INTERVAL HPI: no new complaints. Pt stable on RA. Had some Right sided chest pain yest that is now improved No fever/chills/cough PHYSICAL EXAM: BP 119/68[after standing up, walking AND sitting down[ Pulse 92 Temp (Src) 97.9 (Axillary) Resp 18 Ht 6' 0" (1.83m) Wt 222 lb 10.6 oz (101.0kg) SpO2 98% BMI 30.19 kg/(m2). O2 Therapy: Room Air GENERAL: Alert, no distress, cooperative LUNGS: Lungs clear to auscultation, Good diaphragmatic excursion CARDIAC: Normal S1 and S2; no rubs, murmurs, or gallops ABDOMEN: Abdomen soft, non-tender, BS normal, No masses or organomegaly EXTREMITIES: no pitting edema DATA: Diagnostic tests reviewed for today's visit: CBC, Coags, BMP, Mg, Phos Recent Labs 08/22/24 0451 08/21/24 0410 08/20/24 1355 08/20/24 1125 08/20/24 0851 08/20/24 0259 08/20/24 0229 WBC 7.95 6.68 -- -- -- -- 9.72 HB 10.2* 9.7* -- -- -- -- 10.1* HCT 30.9* 29.3* -- -- -- -- 31.2* PLT 207 201 -- -- -- -- 213 INR -- -- -- -- -- 1.0 -- APTT -- -- 41.6* 135.0* >139.0* -- -- NA 139 142 -- -- -- -- 135* K 3.9 4.3 -- -- -- -- 3.7 CHLOR 103 108* -- -- -- -- 101 CO2 21* 24 -- -- -- -- 21* BUN 10 12 -- -- -- -- 20 CREAT 0.79 0.82 -- -- -- -- 1.07* GLUC 103* 88 -- -- -- -- 131* CA 8.6 8.6 -- -- -- -- 8.6 MG -- -- -- -- -- -- 2.1 P -- -- -- -- -- -- 3.2 Problem List Bilateral pulmonary embolism (HCC) (POA: Yes) Acute cor pulmonale (HCC) (POA: Status not on file) Acute hypoxemic respiratory failure (HCC) (POA: Status not on file) S/P total right hip arthroplasty (POA: Status not on file) Lactic acidosis (POA: Status not on file) Deep vein thrombosis (DVT) of proximal lower extremity (HCC) (POA: Status not on file) Assessment/Plan acute hypoxic respiratory failure - now resolved # Acute bilateral pulmonary embolism , # RLE calf DVT provoked from recent Right hip surgery- pt now on lovenox, therapeutic dose Will change to eliquis at DC Echo done shows LVEF 68% with moderate pulm HTN Seen by vascular surgery team- no need for mechanical thrombectomy Recommended rpt Echo in 3 months # recent right total hip arthroplasty # demand ischemia Pt worked with PT and recommending home with PT Plan for DC home with [facility] today Plan of care discussed with: Provider, RN, Patient. SIGNATURE: Bon Elena MD PATIENT NAME: Bekah Salgado DATE: August 22, 2024 TIME: 3:00 PM PAGER: SUE COTTRELL 1999 PNL SERPL Collected: 4:51 AM Status: F Source: [facility] Order Comment: Specimen Type : BLOOD SPECIMEN Ordering Facility: [facility] Address: [address] [place] [address] TYPE CODE TESTS RESULT OUT OF RANGE REFERENCE UNITS LAB 2345-7(LOINC) Glucose SerPl-mCnc 103 High 74-99 mg/dL Result Comment: The [place] Diabetes Association (ADA) provides guidance for cutoff values for fasting glucose and random glucose. The ADA defines fasting as no caloric intake for at least 8 hours. Fasting plasma glucose results between 100 to 125 mg/dL indicate increased risk for diabetes (prediabetes). Fasting plasma glucose results greater than or equal to 126 mg/dL meet the criteria for diagnosis of diabetes. In the absence of unequivocal hyperglycemia, results should be confirmed by repeat testing. In a patient with classic symptoms of hyperglycemia or hyperglycemic crisis, random plasma glucose results greater than or equal to 200 mg/dL meet the criteria for diagnosis of diabetes. Reference: Standards of Medical Care in Diabetes 2016, [place] [employer] Association. Diabetes Care. 2016.39(Suppl 1). LAB 3094-0(LOINC) BUN SerPl-mCnc 10 7-21 mg/ dL LAB 2160-0(LOINC) Creat SerPl-mCnc 0.79 0.58-0.96 mg/dL LAB 2951-2(LOINC) Sodium SerPl-sCnc 139 136-144 mmol/L LAB 2823-3(LOINC) Potassium SerPl-sCnc 3.9 3.7-5.1 mmol/L LAB 2075-0(LOINC) Chloride SerPl-sCnc 103 98-107 mmol/L LAB 8-9(LOINC) CO2 SerPl-sCnc 21 Low 22-30 mmo l/L LAB 1863-0(LOINC) Anion Gap4 SerPl-sCnc 15 8-15 mmol/L LAB 89108-7(LOINC) Calcium SerPl-mCnc 8.6 8.5-10.2 mg/dL LAB 84856-1(LOINC) Creatinine + eGFR Pnl SerPlBld 83 >=60 mL/min/1. 73m??? Result Comment: Estimated Gl omerular Filtration Rate (eGFR) is calculated using the 2020 CKD-EPI creatinine equation. This equation utilizes serum creatinine, sex, and age as parameters. The creatinine assay has traceable calibration to isotope dilution-mass spectrometry. Refer to KDIGO guidelines for clinical interpretation. In patients with unstable renal function, e.g. those with acute kidney injury, the eGFR may not accurately reflect actual GFR. Performed By: #### [id number] # ### [facility] CLIA [id number] [address] STATES OF [facility] CBC PNL BLD AUTO Collected: 08/22/2024 4:51 AM Statu s: F Source: [facility] Order Comment: Specimen Type : BLOOD SPECIMEN Ordering Facility: [facility] Address: [address] [place] [address] TYPE CODE TESTS RESULT OUT OF RANGE REFERENCE UNITS LAB 6690-2(LOINC) WBC # Bld Auto 7.95 3.70-11.00 k/uL LAB 789-8(LOINC) RBC # Bld Auto 3.28 Low 3.90-5.20 m/ uL LAB 718-7(LOINC) Hgb Bld-mCnc 10.2 Low 11.5-15.5 g/dL LAB 4544-3(LOINC) Hct VFr Bld Auto 30.9 Low 36.0-46.0 % LAB 787-2(LOINC) MCV RBC Auto 94.2 80.0-100.0 fL LAB 785-6(LOINC) MCH RBC Qn Auto 31.1 26.0-34.0 pg LAB 786-4(LOINC) MCHC RBC Auto-mCnc 33.0 30.5-36.0 g/dL LAB 93251-0(LOINC) RDW RBC-Rto 13.5 11.5-15.0 % LAB 777-3(LOINC) Platelet # Bld Auto 207 150-400 k/uL LAB 89292-8([facility]) PMV Bld Auto 10.7 9.0-12.7 fL LAB 771-6([facility] nRBC # Bld Auto <0.01 <0.01 k/uL Performed By: #### [id number] # ### [facility] CLIA [id number] [address] PLAN OF CARE Observed: 08/21/2024 3:07 PM Status: COMPLETED Source: [facility] HNO ID: [id number] Author: ?, ?, ? Service: ? Author Type: [employer] Type: Plan of Care Filed: 08/21/2024 15:29 Note Text: PHARMACY MEDICATION REVIEW Patient Name: Bekah Salgado : 1960 The following medications were updated within the [employer] medication list: Medications ADDED to [employer] medication list ARGININE, L-ARGININE, ORAL Patient Yes Yes BIOTIN ORAL Patient Yes Yes TURMERIC ORAL Patient Yes Yes Medications CHANGED on [employer] medication list polyethylene glycol 3350 17 gram packet Yes No Medications REMOVED from [employer] medication list zucoshna-rgjz-vvboh-oreg-capry (CANDICIDAL) 100 mg-150 mg- 50 mg-150 mg cap Adjust Sig - Block E-Cancel vit B complx-folic ac-C-biotin 1 mg-60 mg- 300 mcg tab Adjust Sig - Block E-Cancel Additional comments: I was able to talk with pt. and her Louie about her home medications. They were able verify the 13 medications recorded below on the [employer] list. Pt. states she has not started the miralax yet. Also the pt. is following a discharge medication list of instructions from [facility] from 08/18/2024. I have removed 2 OTC supplements from the [employer] list and added 3 OTC supplements (see above). I have noted a change to one medication (miralax). Medication history completed by historian. No nursing follow up needed. The below information represents the best possible medication history: Yes Medication history completed by: [place] Cashier: Tim Saba (Career Development Specialist) Source of history: Patient: Reliability of source: Appears reliable, clearly identified: Medication name, Medication dose, Medication route, and Medication frequency and Pharmacy records: [facility] Medication nonadherence identified: No barriers noted Reconciliation completed: No, pharmacist not yet reviewed Patient interested in Bedside Delivery Services or using [facility] OP Pharmacy at discharge? No Preferred outpatient pharmacy: [facility] - [place] [address] [address] [facility] [phone] [facility] - [place] [address] [address] [facility] [phone] Allergies: Monosodium Glutamate Other: See Comments Comment:Passes out Prior to Admission Medications Prescriptions Last Dose Informant Patient Reported? Taking? ARGININE, L-ARGININE, ORAL Patient Yes Yes Sig: Take 1 tablet by mouth once daily. Aspirin 81 mg tab Yes Yes Sig: Take 81 mg by mouth two times a day. BIOTIN ORAL Patient Yes Yes Sig: Take 1 capsule by mouth. Three times a week Dzzfh-1-VBD-EPA-Fish Oil (FISH OIL) 1,000 (120-180) mg cap Yes Yes Sig: Take 1 g by mouth once daily. TURMERIC ORAL Patient Yes Yes Sig: Take 1 capsule by mouth once daily. acetaminophen (TYLENOL) 500 mg tablet Yes Yes Sig: Take 1,000 mg by mouth every 6 hours as needed for pain. Take as directed with oxycodone cholecalciferol (VITAMIN D) 1,000 unit tab tablet Yes Yes Sig: Take 1,000 Units by mouth once daily. cyanocobalamin, vitamin B-12, 2,000 mcg tab Yes Yes Sig: Take 1 tablet by mouth once daily. docusate sodium (COLACE) 100 mg capsule Yes Yes Sig: Take 100 mg by mouth two times a day. meloxicam (MOBIC) 15 mg tablet Yes Yes Sig: Take 15 mg by mouth once daily. oxyCODONE IR (ROXICODONE) 5 mg immediate release tablet Yes Yes Sig: Take 5 mg by mouth four times daily. pantoprazole DR (PROTONIX) 40 mg tablet Yes Yes Sig: Take 40 mg by mouth once daily. polyethylene glycol 3350 17 gram packet Yes No Sig: Take 17 g by mouth once daily. Dissolve dose in 4 - 8 ounces of liquid and take as directed. traMADol (ULTRAM) 50 mg tablet Yes Yes Sig: Take 50 mg by mouth every 6 hours as needed for pain. Facility-Administered Medications: None Tim Saba (Career Development Specialist) phone [phone] 08/21/2024 PROGRESS Observed: 08/21/2024 1:12 PM Status: COMPLETED Source: [facility] HNO ID: [id number] Author: BON ELENA MD Service: Hospital Medicine Author Type: Physician Type: Progress Notes Filed: 08/21/2024 13:31 Note Text: INPATIENT PROGRESS NOTE CHIEF COMPLAINT: shortness of breath INTERVAL HPI: no new complaints. Seen in MICU. Pt today feels ok. Says felt dizzy when working with therapist No CP/Shortness of Breath at rest PHYSICAL EXAM: BP 101/67 Pulse 89 Temp (Src) 98.1 (Oral) Resp 16 Ht 6' 0" (1.83m) Wt 220 lb 7.4 oz (100.0kg) SpO2 96% BMI 29.89 kg/(m2). O2 Therapy: (S) Room Air GENERAL: Alert, no distress, cooperative LUNGS: Lungs clear to auscultation, Good diaphragmatic excursion CARDIAC: Normal S1 and S2; no rubs, murmurs, or gallops ABDOMEN: Abdomen soft, non-tender, BS normal, No masses or organomegaly EXTREMITIES: no edema DATA: Diagnostic tests reviewed for today's visit: CBC, Coags, BMP, Mg, Phos Recent Labs 08/21/24 0410 08/20/24 1355 08/20/24 1125 08/20/24 0851 08/20/24 0259 08/20/24 0229 WBC 6.68 -- -- -- -- 9.72 HB 9.7* -- -- -- -- 10.1* HCT 29.3* -- -- -- -- 31.2* PLT 201 -- -- -- -- 213 INR -- -- -- -- 1.0 -- APTT -- 41.6* 135.0* >139.0* -- -- NA 142 -- -- -- -- 135* K 4.3 -- -- -- -- 3.7 CHLOR 108* -- -- -- -- 101 CO2 24 -- -- -- -- 21* BUN 12 -- -- -- -- 20 CREAT 0.82 -- -- -- -- 1.07* GLUC 88 -- -- -- -- 131* CA 8.6 -- -- -- -- 8.6 MG -- -- -- -- -- 2.1 P -- -- -- -- -- 3.2 Problem List Bilateral pulmonary embolism (HCC) (POA: Yes) Acute cor pulmonale (HCC) (POA: Status not on file) Acute hypoxemic respiratory failure (HCC) (POA: Status not on file) S/P total right hip arthroplasty (POA: Status not on file) Lactic acidosis (POA: Status not on file) Deep vein thrombosis (DVT) of proximal lower extremity (HCC) (POA: Status not on file) Assessment/Plan # acute hypoxic respiratory failure - now resolved # Acute bilateral pulmonary embolism , # RLE calf DVT provoked from recent Right hip surgery- pt now on lovenox, therapeutic dose Will change to eliquis at DC Echo done shows LVEF 68% with moderate pulm HTN Seen by vascular surgery team- no need for mechanical thrombectomy # recent right total hip arthroplasty # demand ischemia Pt worked with PT and recommending home with PT Anticipate DC in am if stable Desat study prior to DC Plan of care discussed with: Provider, RN, Patient. SIGNATURE: Bon Elena MD PATIENT NAME: Bekah Salgado DATE: August 21, 2024 TIME: 1:12 PM PAGER: PROGRESS Observed: 08/21/2024 11:08 AM Status: COMPLETED [facility] [id number] Author: PATSY NG APRN.ASHLEY Service: Pulmonary Disease Author Type: Nurse Practitioner Type: Progress Notes Filed: 08/21/2024 11:20 Note Text: PULMONARY PROGRESS NOTE [facility] SERVICE DATE: August 21, 2024 SERVICE TIME: 11:08 AM Subjective Patient seen and examined today for pulmonary follow-up Patient is still bedded in ICU, though is floor status She complains of dizziness/lightheadedness upon getting up out of bed Additionally she complains of right hip pain Patient denies any wheezing, cough, phlegm, hemoptysis, chest pain, fevers or chills. Objective OBJECTIVE Current Facility-Administered Medications Medication Dose Route Frequency Provider Last Rate Last Admin iv contrast (radiology procedure) INTRAVENOUS DIRECTED PRKit Cervantes DO NaCl 0.9% iv flush bag 20 mL INTRAVENOUS PRN Kit Clark DO oxyCODONE-acetaminophen 5-325 mg 1-2 tablet (PERCOCET) 1-2 tablet ORAL q 6 H PRKit Cervantes DO 1 tablet at 08/21/24 0412 acetaminophen 325 mg tab(s) (TYLENOL) 325 mg ORAL q 8 H PRKit Cervantes DO 325 mg at 08/21/24 0023 sodium chloride 0.9 % (flush) 2-10 mL (BD POSIFLUSH) 2-10 mL INTRAVENOUS DIRECTED PRKit Cervantes DO senna-docusate 8.6-50 mg 1 tablet (SENNA-S) 1 tablet ORAL BID Kit Clark DO 1 tablet at 08/21/24 0908 enoxaparin 100 mg injection (LOVENOX) 1 mg/kg/dose SUBCUTANEOUS q 12 HR Kit Clark DO 100 mg at 08/21/24 0406 INTAKE AND OUTPUT Intake/Output Summary (Last 24 hours) at 08/21/2024 1108 Last data filed at 08/20/2024 1805 Gross per 24 hour Intake 468 ml Output 700 ml Net -232 ml New Radiology Films: Echo 08/20/24: - Technically difficult exam due to body habitus. - Exam indication: Hypoxemia of uncertain etiology - The left ventricle is normal in size. There is no left ventricular hypertrophy. Left ventricular systolic function is normal. EF = 68 ? 5% (2D biplane) Definity contrast used for endocardial border detection. Normal left ventricular diastolic function. - The right ventricle is mildly dilated. Right ventricular systolic function is normal. - Estimated right ventricular systolic pressure is 52 mmHg consistent with moderate pulmonary hypertension. Estimated right atrial pressure is 8 mmHg based on IVC assessment. - The patient has not had a prior CC echocardiographic exam for comparison. Right hip XR 6/20/25: Postsurgical changes of right hip arthroplasty Echo 08/20/24: 1. Bilateral pulmonary thromboemboli with findings concerning for heart strain. 2. No evidence of pulmonary infarct. Thin bilateral pleural effusions with dependent atelectasis. 4. Findings were conveyed and confirmed by secure Epic Chat to Dr. Travis Weston by Dr. Alma Dudley at 4:20 AM on 08/20/2024. BLE US 08/20/24: Negative study for proximal DVT in the left and right lower extremities. Positive study for acute calf DVT in the right lower extremity. Negative study for superficial thrombophlebitis in the imaged segments of the left and right lower extremities. New Micro: New Labs: BMP: Glucose (mg/dL) Date Value 08/21/2024 88 Potassium (mmol/L) Date Value 08/21/2024 4.3 Sodium (mmol/L) Date Value 08/21/2024 142 Chloride (mmol/L) Date Value 08/21/2024 108 CO2 (mmol/L) Date Value 08/21/2024 24 Creatinine (mg/dL) Date Value 08/21/2024 0.82 BUN (mg/dL) Date Value 08/21/2024 12 Anion Gap (mmol/L) Date Value 08/21/2024 10 Calcium, Total (mg/dL) Date Value 08/21/2024 8.6 CBC: Hemoglobin (g/dL) Date Value 08/21/2024 9.7 08/20/2024 10.1 Hematocrit (%) Date Value 08/21/2024 29.3 08/20/2024 31.2 WBC (k/uL) Date Value 08/21/2024 6.68 08/20/2024 9.72 Vital Signs 08/21/24 0730 08/21/24 0741 08/21/24 0900 08/21/24 1000 BP: 116/83 101/67 Pulse: 75 83 89 Resp: 13 19 16 Temp: 37 ?C (98.6 ?F) 36.7 ?C (98.1 ?F) TempSrc: Oral Oral SpO2: 94% 93% 96% Weight: Height: PHYSICAL EXAM: Vitals: Reviewed above. Patient is stable on room air GENERAL: AAOx3, pleasant, resting in bed in NAD RESPIRATORY: CTAB A AND P with diminished breath sounds at bases. Respirations are even AND unlabored at rest. No wheezing, accessory muscle use, pursed lip breathing or conversational dyspnea. As above, patient is stable on room air CARDIOVASCULAR: Normal S1S2, RRR. No edema. GI: Abdomen soft, nondistended, nontender, bowel sounds present EXTREMITIES: No clubbing or cyanosis. Moves all extremities equal. Cooling device on right hip Assessment and Plan: ? 1) Acute hypoxic respiratory failure 2/2 #2 -Resolved. Patient remained stable on room air -Okay to keep sats >90% -Continue Albuterol PRN -Encourage use of IS Q1H -Check ambulatory pulse oximetry (desaturation study) prior to hospital discharge (if able) 2) Acute bilateral pulmonary emboli with acute cor pulmonale -Suspect provoked in the setting of #4 -Intermediate high risk PE -Vascular surgery deferred thrombectomy and feels the patient can be treated sufficiently with anticoagulation alone -Continue therapeutic Lovenox and transition to Eliquis x 3 months per primary team -Echocardiogram was with mildly dilated right ventricle and mild pulmonary hypertension with an RVSP of 52 -Will need follow-up echocardiogram in 3 months with a follow-up with pulmonary afterwards (patient lives in [place] and would like to follow-up there) 3) RLE DVT -See plan outlined above #2 4) S/p total right hip arthroplasty at 08/18/24 -Ortho following -Outpatient follow up with primary surgeon -Continue PRN pain control 5) Multiple medical problems -Per primary team 6) Multiple medical problems -Per primary team 7) Discharge planning -Given that the patient remains stable from a pulmonary standpoint and that we have no further new recommendations at this time, we will follow peripherally - though are available for re-consultation if needed. -I will go ahead and place the order for repeat echo in 3 months. Patient wishes to follow-up in [place]. -Please call with any questions/concerns or if patient's condition worsens in any way. SIGNATURE: Patsy Ng APRN.ASHLEY PATIENT NAME: Bekah Salgado DATE: August 21, 2024 TIME: 11:08 AM PAGER/CONTACT #: [phone] THERAPY NT Observed: 08/21/2024 9:15 AM Status: COMPLETED Source: [facility] HNO ID: [id number] Author: MARJORIE SANTIAGO, PT Service: Physical Therapy Author Type: Physical Therapist Type: Therapy (PT/OT/Speech/Resp) Filed: 08/21/2024 11:55 Note Text: Physical Therapy Evaluation Summary SERVICE DATE: 08/21/2024 SERVICE TIME: 08 to 08 ROOM: [place] [address] PT 6 Clicks Score: 17 DISCHARGE RECOMMENDATIONS Home PT Anticipated Discharge Needs: Physical Assist at Home Physical Assist at Home for: Cleaning, Laundry, Meals, Shopping, Transportation, Self Care, Stairs ASSESSMENT Response to Therapy Interventions: Good Participation in Activities, Pain pt needing assist d/t recent R CLAUDETTE; limited by dizzy/lightheaded PRECAUTIONS Posterior Hip Precautions, Weight Bearing Restrictions, Fall Risk, Lines/Tubes/Drains Right Lower Extremity Weight Bearing Status: WBAT CURRENT HOSPITAL COURSE presented to ED after syncopal episode--found to have bilat PE with R gastroc DVT; pt s/p R CLAUDETTE 08/18 at [facility] Relevant Past Medical History: R hip OA HOME LIVING Patient Lives With: Spouse (usually just the 2 of them at their home in [place]--plan was to stay with her sister after R CLAUDETTE d/t less steps and first floor set up) Assistance Available: Part-Time Entry To Home: Stairs Equipment Owned: Cane, Walker- Wheeled, Elevated Toilet Seat, Shower Chair PRIOR FUNCTIONAL LEVEL Within Functional Limits indep, 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, driving; only had R CLAUDETTE on 08/18 and only home a day SUBJECTIVE c/o dizzy/lightheaded in seated and then in standing THERAPY DIAGNOSIS Reduced mobility-other, Muscle Weakness (generalized), Unsteadiness on feet, Abnormalities of gait and mobility-other TREATMENT INTERVENTIONS Evaluation, Therapeutic Activity (05809) Timed Code Treatment (minutes): 14 Skilled Treatment Time (minutes): 29 $ Evaluation-Moderate (79179) Billed Units: 1 unit Therapeutic Activity (38089) Treatment Minutes: 14 $ Therapeutic Activity (75595) Billed Units: 1 unit Cues for safe mobility per grid below Initiated right CLAUDETTE protocol exercises-- needed min A with heel slide and hip ab/add Reviewed posterior hip precautions Cues for long sit technique for bed mobility Cues for hand placement and safety with transfers Cues for gait sequencing and safety--taking steps forward/backward Discussed POC and goals and D/C TRAINING AND EDUCATION PROVIDED Bed Mobility, Benefits of In-Hospital Mobility, Discharge Planning, Disease Specific Education, Exercise Program, Falls Prevention, Home Safety, Role of Physical Therapy, Transfers THERAPEUTIC SKILLS USED Activity Dosing, Assessment of Tolerance Including Vitals Response to Activity, Cues for Sequencing/Proper Technique for Activity, Physical Assist, Movement Facilitation FUNCTIONAL STATUS Bed Mobility Supine To Sit: Minimal Assistance, Additional Information cues for long sit technique and needed assist at RLE to advance to EOB and off bed Sit to Supine: Moderate Assistance, Additional Information cues to angle trunk to HOS and needed assist to bring LEs into bed Transfers Sit To Stand: Additional Information, Minimal Assistance cues for hand placement and safety Stand To Sit: Contact Guard Assistance, Additional Information cues to reach back for bed and slowly sit down Bed to Chair Gait Minimal Assistance, Additional Information cues for gait sequencing and safety Gait Device: Wheeled Walker General Deviations/Observations: Antalgic gait, Ute decreased, Flexed trunk posture, Step length decreased Gait Distance (feet): 5-6' forward/backward Stairs Range of Motion: ROM Limitation Comments ROM Limitation Comments: R heel slide to appox 40 degrees--AAROM Strength: Strength Limitation Comments Strength Limitation Comments: good QS R knee; partial LAQ in seated GOALS Transfer Supine to/from Sit with: Stand By Assistance Transfer Sit to/from Stand with: Stand By Assistance Ambulate with: Stand By Assistance Distance: 20'x2 Device: Wheeled Walker Goal: x12 reps R CLAUDETTE protocol exercises Rehab Potential: Good Good Rehab Potential Due To: Good overall health status ACUTE CARE TREATMENT PLAN PT Frequency: Once Daily (twice daily as able and once on RNF) Treatment Interventions: Education, Joint Mobility, Strengthening, Functional Mobility Training, Balance Training SIGNATURE: Marjorie Santiago, DANDRE PATIENT NAME: Bekah Salgado DATE: August 21, 2024 TIME: 9:15 AM CBC PNL BLD AUTO Collected: 08/21/2024 4:10 AM Statu s: F Source: [facility] Order Comment: Specimen Type : BLOOD SPECIMEN Ordering Facility: [facility] Address: [address] [place] [address] TYPE CODE TESTS RESULT OUT OF RANGE REFERENCE UNITS LAB 6690-2(LOINC) WBC # Bld Auto 6.68 3.70-11.00 k/uL LAB 789-8(LOINC) RBC # Bld Auto 3.05 Low 3.90-5.20 m/ uL LAB 718-7(LOINC) Hgb Bld-mCnc 9.7 Low 11.5-15.5 g/dL LAB 4544-3(LOINC) Hct VFr Bld Auto 29.3 Low 36.0-46.0 % LAB 787-2(LOINC) MCV RBC Auto 96.1 80.0-100.0 fL LAB 785-6(LOINC) MCH RBC Qn Auto 31.8 26.0-34.0 pg LAB 786-4(LOINC) MCHC RBC Auto-mCnc 33.1 30.5-36.0 g/dL LAB 20685-0([facility]) RDW RBC-Rto 13.4 11.5-15.0 % LAB 777-3(LOINC) Platelet # Bld Auto 201 150-400 k/uL LAB 84904-7([facility]) PMV Bld Auto 11.1 9.0-12.7 fL LAB 771-6([facility]) nRBC # Bld Auto <0.01 <0.01 k/uL Performed By: #### 92744-6 # ### [facility] CLIA [id number] [address] [place] [address] [place] METAB 2000 PNL SERPL Collected: 4:10 AM Status: F Source: [facility] Order Comment: Specimen Type : BLOOD SPECIMEN Ordering Facility: [facility] Address: [address] [place] [address] TYPE CODE TESTS RESULT OUT OF RANGE REFERENCE UNITS LAB 2345-7([facility]) Glucose SerPl-mCnc 88 74-99 mg/dL Result Comment: The [place] Diabetes Association (ADA) provides guidance for cutoff values for fasting glucose and random glucose. The ADA defines fasting as no caloric intake for at least 8 hours. Fasting plasma glucose results between 100 to 125 mg/dL indicate increased risk for diabetes (prediabetes). Fasting plasma glucose results greater than or equal to 126 mg/dL meet the criteria for diagnosis of diabetes. In the absence of unequivocal hyperglycemia, results should be confirmed by repeat testing. In a patient with classic symptoms of hyperglycemia or hyperglycemic crisis, random plasma glucose results greater than or equal to 200 mg/dL meet the criteria for diagnosis of diabetes. Reference: Standards of Medical Care in Diabetes 2016, [place] [employer] Association. Diabetes Care. 2016.39(Suppl 1). LAB 3094-0(LOINC) BUN SerPl-mCnc 12 7-21 mg/ dL LAB 2160-0(LOINC) Creat SerPl-mCnc 0.82 0.58-0.96 mg/dL LAB 2951-2(LOINC) Sodium SerPl-sCnc 142 136-144 mmol/L LAB 2823-3(LOINC) Potassium SerPl-sCnc 4.3 3.7-5.1 mmol/L LAB 2075-0(LOINC) Chloride SerPl-sCnc 108 High 98-107 mmol/L LAB 2027-9(LOINC) CO2 SerPl-sCnc 24 22-30 mmo l/L LAB 1863-0(LOINC) Anion Gap4 SerPl-sCnc 10 8-15 mmol/L LAB 74566-5(LOINC) Calcium SerPl-mCnc 8.6 8.5-10.2 mg/dL LAB 50372-1(LOINC) Creatinine + eGFR Pnl SerPlBld 79 >=60 mL/min/1. 73m??? Result Comment: Estimated Gl omerular Filtration Rate (eGFR) is calculated using the 2020 CKD-EPI creatinine equation. This equation utilizes serum creatinine, sex, and age as parameters. The creatinine assay has traceable calibration to isotope dilution-mass spectrometry. Refer to KDIGO guidelines for clinical interpretation. In patients with unstable renal function, e.g. those with acute kidney injury, the eGFR may not accurately reflect actual GFR. Performed By: #### 81300-7 # ### [facility] CLIA [id number] [address] OF [facility] ASHLEYN Observed: 08/21/2024 12:00 AM Status: COMPLETED Source: [facility] Telephone (BiscootPRAD) BEKAH SALGADO ([id number]) 1960 F Date Time Provider Department 08/21/24 PATSY NG During your visit today, we recorded the following information about you: Patsy Ng APRN.CNP 08/21/2024 11:22 AM Signed Please arrange the following testing for Bekah Salgado. F/u echocardiogram in 3 months s/p PE with cor pulmonale The patient will also need a follow up pulmonology afterwards (though the lives in [place] and would like to follow up there) Thank you! Patsy Ng APRN.CNP August 21, 2024 11:21 AM Lisandra Espana 08/23/2024 10:52 AM Signed Patient scheduled in [place] for follow up since unable to schedule with a PH specialist in [place] Allergies As of Date: 08/21/2024 Noted Allergy Reaction GLUTAMIC ACID 11/21/2015 14 - Other: See Comments Comments: Passes out MONOSODIUM GLUTAMATE 11/21/2015 14 - Other: See Comments Comments: Passes out Date Reviewed: 08/21/2024 Reviewed by: Pretty Bowers RN - Fully Assessed Reason for Visit: Orders [681] Primary Visit Diagnosis:Pulmonary HTN (HCC) [I27.20] Order(s):ECHO [847822] Order #: [id number]: 1 FUTURE Prescriptions as of 08/23/2024 - apixaban (ELIQUIS DVT-PE TREAT 30D START) 5 mg (74 tabs) Take 2 tablets (10 mg) by mouth twice daily for 7 days. Then take 1 tablet (5 mg) by mouth twice daily for 23 days - TURMERIC ORAL Take 1 capsule by mouth once daily. - ARGININE, L-ARGININE, ORAL Take 1 tablet by mouth once daily. - BIOTIN ORAL Take 1 capsule by mouth. Three times a week - acetaminophen (TYLENOL) 500 mg tablet Take 1,000 mg by mouth every 6 hours as needed for pain. Take as directed with oxycodone - docusate sodium (COLACE) 100 mg capsule Take 100 mg by mouth two times a day. - oxyCODONE IR (ROXICODONE) 5 mg immediate release tablet Take 5 mg by mouth four times daily. - pantoprazole DR (PROTONIX) 40 mg tablet Take 40 mg by mouth once daily. - polyethylene glycol 3350 17 gram packet Take 17 g by mouth once daily. Dissolve dose in 4 - 8 ounces of liquid and take as directed. - cyanocobalamin, vitamin B-12, 2,000 mcg tab Take 1 tablet by mouth once daily. - Jcyqr-2-MWI-EPA-Fish Oil (FISH OIL) 1,000 (120-180) mg cap Take 1 g by mouth once daily. - cholecalciferol (VITAMIN D) 1,000 unit tab tablet Take 1,000 Units by mouth once daily. Problem List As Of Date 08/21/2024 Noted Resolved Bilateral pulmonary embolism (HCC) [I26.99] 08/20/2024 Acute cor pulmonale (HCC) [I26.09] 08/20/2024 Acute hypoxemic respiratory failure (HCC) [J96.*08/20/2024 S/P total right hip arthroplasty [Z96.641] 08/20/2024 Lactic acidosis [E87.20] 08/20/2024 Deep vein thrombosis (DVT) of proximal lower ex*08/21/2024 Encounter Status:Closed by PATSY NG on 08/21/24 CASE MGT INARGENIS LOMBARDI Observed: 08/20/2024 3:57 PM Status: COMPLETED Source: [facility] HNO ID: [id number] Author: GOPAL DEJESUS RN Service: Care Management Author Type: Registered Nurse Type: Care Mgt Initial Assessment Filed: 08/20/2024 16:00 Note Text: CARE MANAGEMENT: ASSESSMENT AND DISCHARGE PLAN SERVICE DATE: August 20, 2024 SERVICE TIME: 3:57 PM PCP: Gisela Roque DO Primary Contact: Extended Emergency Contact Information Primary Emergency Contact: Louie Zaman Address: [address] [place] [address] Mobile Relation: Spouse Admission Status: Inpatient Insurance Provider: [employer] WH[employer] PPO OOS Discharge Planning requested by: Per Department Practice Potential Transition Plans Home Advance Directives Current Living Arrangements and Support Lives with: Spouse/significant other, Family members Type of Residence: Private Residence (House) Does the patient have to climb stairs at home?: Yes Support: Family members, Spouse/significant other How do you manage to accomplish the following: Independent: Ambulation, Medication Management, Bathe/Shower, Transportation to appointments/community, Dress, Meals/Meal Prep, Going to the bathroom Current Services/Equipment Current Post-Acute Service(s): DME Current DME Type: Cane, Walker, Elevated toilet seat, Shower seat Discharge Planning Patient Goal(s): Be able to go home, Better mobility [place] of Choice Explained: [place] of Choice Given: Yes Level of Care Discussed: Home Care Are you interested in bedside delivery of your medications? No Discharge Planning Participant(s): Patient, Spouse/significant other Patient/Family Comments: Spouse supportive and has good comprehension of hip recovery Caregiver Assessment: Caregiver is ready, willing and able to meet the patient's needs as recommended by the inter-professional team: Yes Name of Caregiver: LOUIE Transport at Discharge: Transportation Arrangements: To Be Determined Needs Prior to Discharge: PT/OT eval, dc meds Post-Acute Discharge Plan: Pt and spouse staying with sister in [place] while recovering from hip surgery. Pt was active with [facility]- referral requested- anticipate resumption of care. Pt has cane and walker. Plan for OAC plan at dc. No additional needs at this time. SIGNATURE: Gopal Dejesus RN PATIENT NAME: Bekah Salgado DATE: August 20, 2024 TIME: 3:57 PM APTT PPP Collected: 1:55 PM Status: F Source: [facility] Order Comment: Specimen Type : BLOOD SPECIMEN Ordering Facility: [facility] Address: [address] [place] [address] TYPE CODE TESTS RESULT OUT OF RANGE REFERENCE UNITS LAB 54849-4(LOINC) aPTT PPP 41.6 High 23.0-32.4 sec Performed By: #### [id number] # ### [facility] CLIA [id number] [address] PLAN OF CARE Observed: 08/20/2024 12:58 PM Status: COMPLETED Source: [facility] HNO ID: [id number] Author: NISHI SANTILLAN PA-C Service: Vascular Surgery Author Type: Physician Substation Operator Type: Plan of Care Filed: 08/20/2024 13:01 Note Text: VASCULAR SURGERY PLAN OF CARE NOTE TTE resulted with no right heart strain. Recommend therapeutic AC. OK to transition heparin to Lovenox with plans for DOAC at discharge. Defer to primary team. No indication for mechanical thrombectomy at this point. Vascular Surgery to sign off, please page with concerns/ questions. SIGNATURE: Nishi Santillan PA-C PATIENT NAME: Bekah Salgado DATE: August 20, 2024 TIME: 12:58 PM Vascular Surgery Service Pager: For questions or concerns Fri-Fri 6a-5p please page [phone]. After 5pm and on Weekends and Holidays, please page [phone] if in ICU or [phone] if on RNF. APTT PPP Collected: 11:25 AM Status: F Source: [facility] Order Comment: Specimen Type : BLOOD SPECIMEN Ordering Facility: [facility] Address: [address] [place] [address] TYPE CODE TESTS RESULT OUT OF RANGE REFERENCE UNITS LAB 38190-4(LOINC) aPTT PPP 135.0 High 23.0-32.4 sec Performed By: #### [id number] # ### [facility] CLIA [id number] [address] ECHO Observed: 08/20/2024 10:31 AM Status: F Source: [facility] Echocardiography Report: Tra nsthoracic Echo [facility] Date of service: 08/20/2024 10:31:03 AM DISPENSARY Ordering physician: BLANCA WALSH Indication: Hypoxemia of uncertain etiology Technologist: Kelli Landeros [facility] Interpreting physician: Derrick Rod MD PATIENT: Name: BEKAH SALGADO : 1960 Age: 64 years Gender: F Primary rhythm: sinus. Height: 182.90 cm BSA: 2.25 m Weight: 100.00 kg BMI: 29.9 kg/m Heart rate 78 bpm Blood pressure 99/59 mmHg Technically difficult exam due to body habitus. Color Doppler was utilized to interrogate the cardiac valves assessed and spectral Doppler was utilized to determine the flow velocities and pressure gradients reported in this exam. MEASUREMENTS: Value Indexed Normal Max aortic dimension 3.5 cm Ao < 3.8 Left atrial volume 56 ml (4ch A-L) 25 ml/m Simon <= 34 LV ID (diastole) 3.8 cm (2D) 1.67 cm/m LV ID (systole) 2.1 cm (2D) 0.94 cm/m IVS, leaflet tips 0.8 cm (2D) Posterior wall thickness 0.9 cm (2D) Left ventricular mass 97 g (2D) 43 g/m LV stroke volume 69 ml (2D biplane) LV end diastolic volume 101 ml (2D biplane) 44.7 ml/m 29<=EDVi<62 LV end systolic volume 32 ml (2D biplane) 14.2 ml/m Ejection Fraction 68 % (2D biplane) EF > 54 FINDINGS: LEFT VENTRICLE The left ventricle is normal in size. There is no left ventricular hypertrophy. Left ventricular systolic function is normal globally. Normal left ventricular diastolic function. Mitral annular lateral E/e': 3.9. Mitral annular septal E/e': 3.5. Definity contrast used for endocardial border detection. Wall Motion: All scored segments are normal. RIGHT VENTRICLE The right ventricle is mildly dilated. Right ventricular systolic function is normal. RV systolic tissue Doppler velocity is 16.0 cm/s. Tricuspid annular displacement is 2.5 cm. Estimated right ventricular systolic pressure is 52 mmHg consistent with moderate pulmonary hypertension. Estimated right atrial pressure is 8 mmHg based on IVC assessment. LEFT ATRIUM The left atrial cavity is normal in size. Pulmonary Veins: The pulmonary venous pattern showed normal systolic flow. RIGHT ATRIUM The right atrial cavity is normal in size. Inferior Vena Cava: The inferior vena cava appears dilated measuring 2.1 cm. The vessel decreases greater than 50 percent with inspiration. MITRAL VALVE There is trace mitral valve regurgitation. There is no thickening. The pressure half time is 58 msec. The peak mitral E/A ratio is 0.75. The average mitral E/e' ratio is 3.7. The mitral flow deceleration time is 200 msec. TRICUSPID VALVE The tricuspid valve leaflets are structurally normal. There is mild (1+) tricuspid valve regurgitation. The hepatic venous pattern showed normal systolic flow. AORTIC VALVE There is no aortic valve stenosis. There is no aortic valve regurgitation. Tricuspid aortic valve. There is no thickening. The peak gradient is 7 mmHg (peak velocity = 128.3 cm/s). The mean gradient is 2 mmHg. The LVOT mean velocity is 52.0 cm/s. The aortic VTI is 19.0 cm. The mean velocity in the aortic valve is 67.6 cm/s. The dimensionless valve index is 0.81. PULMONIC VALVE The pulmonic valve was not seen or not interrogated. There is trace pulmonic valve regurgitation. AORTA The visualized aorta is normal in size. Measurements - Mid ascending aorta 3.5 cm. INTERATRIAL SEPTUM There is no evidence of intracardiac shunting as detected by Doppler. PERICARDIUM There is no pericardial effusion. CONCLUSIONS: - Technically difficult exam due to body habitus. - Exam indication: Hypoxemia of uncertain etiology - The left ventricle is normal in size. There is no left ventricular hypertrophy. Left ventricular systolic function is normal. EF = 68 5% (2D biplane) Definity contrast used for endocardial border detection. Normal left ventricular diastolic function. - The right ventricle is mildly dilated. Right ventricular systolic function is normal. - Estimated right ventricular systolic pressure is 52 mmHg consistent with moderate pulmonary hypertension. Estimated right atrial pressure is 8 mmHg based on IVC assessment. - The patient has not had a prior CC echocardiographic exam for comparison. * * * Final * * * CC [facility] Image : [id number] HIGH SENSITIVITY TROPONIN T Collected: 08/20/2024 8:5 1 AM Status: F Source: [facility] Order Comment: Specimen Type : BLOOD SPECIMEN Ordering Facility: [facility] Address: [address] [place] [address] TYPE CODE TESTS RESULT OUT OF RANGE REFERENCE UNITS LAB 15978-9(LOINC) Troponin T SerPl HS-mCnc 179 High <12 ng/L Performed By: #### HSTNT ### # [facility] CLIA [id number] 1 [place] [address] [place] APTT PPP Collected: 8:51 AM Status: F Source: [facility] Order Comment: Specimen Type : BLOOD SPECIMEN Ordering Facility: [facility] Address: [address] [place] [address] TYPE CODE TESTS RESULT OUT OF RANGE REFERENCE UNITS LAB 54667-3(LOINC) aPTT PPP >139.0 High 23.0-32.4 sec Performed By: #### [id number] # ### [facility] CLIA [id number] [address] STATES OF [facility] THERAPY NT Observed: 08/20/2024 8:42 AM Status: COMPLETED Source: [facility] HNO ID: [id number] Author: NASRA GOSS PT Service: Physical Therapy Author Type: Physical Therapist Type: Therapy (PT/OT/Speech/Resp) Filed: 08/20/2024 08:42 Note Text: PHYSICAL THERAPY MISSED VISIT SERVICE DATE: 08/20/2024 SERVICE TIME: 840 ROOM: [place] [address] Patient not seen due to (B PE and R DVT- hold for anticoagualtion). Recent right total hip arthroplasty--OS 08/18 SIGNATURE: Nasra Goss PT PATIENT NAME: Bekah Salgado DATE: August 20, 2024 TIME: 8:42 AM PROGRESS Observed: 08/20/2024 8:02 AM Status: COMPLETED Source: [facility] HNO ID: [id number] Author: BLANCA WALSH MD Service: Critical Care Author Type: Physician Type: Progress Notes Filed: 08/20/2024 15:02 Note Text: Please link this to the resident's note completed on August 20, 2024 PATIENT NAME: Bekah Salgado Impression/Recommendations [facility] STAFF PHYSICIAN NOTE OF PERSONAL INVOLVEMENT IN CARE I have reviewed the note obtained and documented by the resident and I personally participated in the ng components. I have discussed the case and management of the patient's care. All facets of the examination and diagnostic tests, including labs and imaging,were personally reviewed by me. Notes of other providers and relevant records were examined. Discussed with available caregivers, family, patient. The following comments revise or confirm relevant ng components of the note. Data: All data reviewed. All diagnostic tests, including labs/culture data/specimens and imaging, were personally reviewed by me, with my imaging review/additional comments noted below. IMPRESSION/PLAN: Critical Care Documentation: The patient has the following organ/system impairment(s): Patient is a 64 year old female with R hip osteoarthritis s/p R total hip arthoplasty who presented to the ED on 08/20/2024 with Shortness of Breath and dizziness/syncope when sitting up. Found to have the following: Acute bilateral pulmonary emboli with acute cor pulmonale, RV dilation however normal RV function- primarily distal R main into R lobar with some L lobar into segmental - provoked in setting of recent orthopedic surgery; strain on EKG/by labs, but echo finalized and shows mildly dilated RV with normal RV systolic function Elevated RVSP 52mmHg echo 08/20 suggests moderate pulmonary HTN Acute RLE calf DVT Acute hypoxic respiratory failure Recent total R hip arthoplasty on 08/18 Mild normocytic anemia Mild lactic acidosis PLAN: - vascular recs appreciated; given no RV dysfunction, deferring mechanical thrombectomy at this time - Pt was started on heparin gtt and tolerating AC; awaiting PTT and when no longer supratherapeutic, will start therapeutic lovenox instead. Will ultimately need DOAC for 3-6 months. - ortho confirmed ok for tPA should she decompensate - Wean FiO2 targeting SpO2 >88-92% - Will need F/U w/ PERT clinic after discharge - Will plan for floor transfer once started on Lovenox Rounding checklist: - Replete lytes prn - Monitor BG; goal <180, avoid hypoglycemia - DVT prophy: As above - GI prophy: N/A - Pain control; Home meds as luciano; see orders - Needs PT/OT: Y - Lines: N - Indwelling galarza: N - Wound consult/following- N - Ensure bowel regimen accordingly - Nutrition: Start po diet Code Status: Full code Data, notes, medications, and vitals reviewed today. SCHEDULED MEDS: potassium chloride, 20 mEq, ONCE heparin, Last Rate: 1,800 Units/hr (08/20/24 0313) Lines, Drains, and Airways Line Duration Peripheral 08/20/24 0205 Left Antecubital 20 Gauge <1 day Peripheral 08/20/24 0207 [facility] Right Hand 20 Gauge <1 day Orders Placed This Encounter DIET NPO Standing Status: Standing Number of Occurrences: 1 VITAL SIGNS: Pain Level: 0 BP 86/58 Pulse 77 Temp (Src) 98.6 (Oral) Resp 19 Ht 6' 0" (1.83m) Wt 220 lb (99.8kg) SpO2 98% BMI 29.83 kg/(m2). O2 Therapy: Nasal Cannula, Liters (Numeric Only): 6 Temp (24hrs), Av.8 ?C (98.2 ?F), Min:36.5 ?C (97.7 ?F), Max:37 ?C (98.6 ?F) LABS: Recent Labs 08/20/24228 WBC 9.72 HB 10.1* HCT 31.2* PLT 213 Recent Labs 08/20/24228 NA 135* K 3.7 CHLOR 101 CO2 21* CREAT 1.07* BUN 20 GLUC 131* Recent Labs 08/20/24228 MG 2.1 CA 8.6 P 3.2 TPROT 6.0* ALB 3.8* Recent Labs 08/20/24228 ALKPHOS 63 TBILI 0.4 AST 24 ALT 16 VENTILATOR INFORMATION: Settings: Patient Data: Weaning Data: 24 hour Intake AND Output: No intake or output data in the 24 hours ending 08/20/24 0802 Discussed with staff. Additionally, discussed with - Multi-disciplinary rounds performed with RN, PharmD, Resident(s) This patient has a high probability of sudden, clinically significant deterioration, which requires the highest level of physician preparedness to intervene urgently. I managed/supervised life or organ supporting interventions that required frequent physician assessment. I devoted my full attention to the direct care of this patient for the amount of time indicated below. Time I spent with family or surrogate(s) is included only if the patient was incapable of providing the necessary information or participating in medical decision making. Time devoted to teaching and to any procedures I billed separately is not included. Time spent providing critical care services, including reassessments: 30 minutes, excluding procedures. Some elements above have been copied from the prior day's pulm/critical care note, which have been updated where appropriate, and all reflect my current medical decision making from today. SIGNATURE: Blanca Walsh MD [facility]- Respiratory Medicine Division of Pulmonary and Critical Care Medicine SERVICE DATE: August 20, 2024 SERVICE TIME: 1:30 PM XR HIP 1V RT Observed: 08/20/2024 7:52 AM Status: F Source: [facility] * * *Final Report* * * DATE OF EXAM: Aug 20 2024 7:52AM AKX [id number] - XR HIP 1V RT / PROCEDURE REASON: Post-operative / post-procedure assessment * * * * Physician Interpretation * * * * TECHNIQUE: XR HIP 1V RT EXAM DATE: 08/20/2024 7:52 AM COMPARISON STUDIES: None CLINICAL HISTORY: Post-operative / post-procedure assessment. Syncope. RESULT: Right hip arthroplasty in good alignment without fracture. Postsurgical changes with soft tissue gas. Excreted contrast in the urinary bladder. IMPRESSION: Postsurgical changes of right hip arthroplasty Fire Adjuster: [facility] Transcribe Date/Time: Aug 20 2024 8:49A Dictated by : MONIQUE MCDONALD MD This examination was interpreted and the report reviewed and electronically signed by: MONIQUE MCDONALD MD on Aug 20 2024 8:50AM EST [id number] HIGH SENSITIVITY TROPONIN T (THIRD) 3 HRS AFTER INITIAL Collected: 08/20/2024 6:18 AM Status: F Source: [facility] Order Comment: Specimen Type : BLOOD SPECIMEN Ordering Facility: [facility] Address: [address] [place] [address] TYPE CODE TESTS RESULT OUT OF RANGE REFERENCE UNITS LAB 13949-4(LOINC) Troponin T SerPl HS-mCnc 216 High <12 ng/L Performed By: #### [id number] # ### [facility] CLIA [id number] [address] [place] [address] [place] PROGRESS Observed: 08/20/2024 6:16 AM Status: COMPLETED Source: [facility] HNO ID: [id number] Author: BLANCA WALSH MD Service: Critical Care Author Type: Physician Type: Progress Notes Filed: 08/20/2024 15:50 Note Text: [facility] STAFF PHYSICIAN NOTE OF PERSONAL INVOLVEMENT IN CARE I have reviewed the note obtained and documented by the resident and I personally participated in the ng components. I have discussed the case and management of the patient's care. All facets of the examination and diagnostic tests, including labs and imaging,were personally reviewed by me. Notes of other providers and relevant records were examined. Please reference any relevant documentation elsewhere for the corresponding day. Discussed with available caregivers, family, patient. SIGNATURE: Blanca Walsh MD [facility]- Respiratory Medicine Division of Pulmonary and Critical Care Medicine MICU PROGRESS NOTE PATIENT NAME: Bekah Salgado REASON FOR ADMISSION:Pulmonary embolism LOS: 0 Subjective HPI This patient is a 64 year old female with history of HLD and osteoarthritis who presented to the emergency department at [facility] on 08/20 for evaluation of shortness of breath and hypoxia. She had a recent total right-sided hip replacement at [facility] on 08/18 without complication but since then she has been less ambulatory and has had progressively worsening shortness of breath. Yesterday, the patient was attempting to ambulate and had a syncopal episode, causing her to collapse on the floor. She contacted EMS to have her helped back into her bed but did not present to the ED at that time. Because of her persistent shortness of breath, patient placed a pulse ox on her finger which read in the 70s so she contacted EMS for transport to the emergency department. On arrival to the emergency department, the patient was endorsing shortness of breath but denied any chest pain or other symptoms. Given concern for pulmonary embolism due to recent surgery and immobilization, CTA PE study was obtained while the patient was in the emergency department which showed bilateral PEs that were worse in the right lobe. No evidence of saddle embolus. Patient's EKG did show changes involving Q waves and T wave inversions in lead III. There is also a marked S wave in lead I compared to previous EKGs. Due to the patient's CT findings and EKG changes in the setting of shortness of breath, PERT team was called. Patient was started on heparin with bolus and maintenance infusion. She was then admitted to MICU for further evaluation and treatment. INTERVAL EVENTS No acute event overnight. This morning, patient is still endorsing some shortness of breath but states that it has improved. Pleuritic pain has also improved. Denies any other symptoms at this time. Pertinent results include: CBC without evidence of acute leukocytosis. Mild decrease in Hb at 10.1 without prior to compare. CMP largely unremarkable. Mild increase in creatinine at 1.07 and decrease in GFR at 58 without prior for comparison. Potassium 3.7. Magnesium 2.1. BNP elevated at 2. Serial troponins 192, 201. Viral panel negative. CTA PE study with evidence of bilateral pulmonary thromboemboli with findings concerning for right heart strain including enlarged right ventricle relative to the left with mild bowing of the interventricular septum. No evidence of pulmonary infarct. DVT US positive for acute calf DVT in RLE. No evidence of proximal DVT in the left and right lower extremities. Consultation updates, all recs are appreciated: Orthopedic surgery evaluated the patient. Patient is okay for tPA if needed from orthopedic perspective. Otherwise recommending outpatient follow up with recent right hip arthroplasty performing physician. Vascular surgery evaluated the patient. Feel that patient would likely benefit from mechanical thrombectomy and will coordinate timing and operative space. Objective OBJECTIVE BP 95/60 Pulse 77 Temp 36.5 ?C (97.7 ?F) (Oral) Resp 20 Ht 182.9 cm (6') Wt 99.8 kg (220 lb) SpO2 97% BMI 29.84 kg/m? Temp (24hrs), Av.5 ?C (97.7 ?F), Min:36.5 ?C (97.7 ?F), Max:36.5 ?C (97.7 ?F) Body mass index is 29.84 kg/m?., No results found for: "HBA1C" No intake or output data in the 24 hours ending 08/20/24 0616 LABORATORY: BLOOD GAS: CBC: Recent Labs 08/20/24 0229 WBC 9.72 HB 10.1* HCT 31.2* PLT 213 MCV 94.8 RDWCV 13.4 NEUTP 79.2 ABSNEUT 7.69* LYMPHP 14.8 MONOP 5.3 EODINP 0.1 COAG: Recent Labs 08/20/24 0259 INR 1.0 CMP: Recent Labs 08/20/24 0229 GLUC 131* NA 135* K 3.7 CHLOR 101 CO2 21* ANION 13 BUN 20 CREAT 1.07* ALB 3.8* TBILI 0.4 ALKPHOS 63 AST 24 ALT 16 TPROT 6.0* MG 2.1 URINALYSIS:No results for input(s): "PH", "SPGR", "UGLUC", "UBILI", "UKET", "UHB", "UPROT", "UROBIL", "UWBC", "SSA" in the last 168 hours. Invalid input(s): "NITR" Cardiac:No results for input(s): "CKTEST", "CKMB", "CKMBP", "TROPONIN", "BNP" in the last 168 hours. Microbiology: Positive Micro-30 Days No results found for the last 720 hours. IMAGING: CTA PE 08/20 IMPRESSION: 1. Bilateral pulmonary thromboemboli with findings concerning for heart strain. 2. No evidence of pulmonary infarct. Thin bilateral pleural effusions with dependent atelectasis. Bilateral DVT US 08/20 IMPRESSION: Negative study for proximal DVT in the left and right lower extremities. Positive study for acute calf DVT in the right lower extremity. Negative study for superficial thrombophlebitis in the imaged segments of the left and right lower extremities. No results found for: "LVEF" Physical Exam Vitals and nursing note reviewed. Constitutional: General: She is not in acute distress. Appearance: Normal appearance. She is not ill-appearing or toxic-appearing. Interventions: Nasal cannula in place. HENT: Head: Normocephalic and atraumatic. Mouth/Throat: Lips: [place]. Mouth: Mucous membranes are moist. Cardiovascular: Rate and Rhythm: Normal rate and regular rhythm. Pulses: Normal pulses. Pulmonary: Effort: Pulmonary effort is normal. No tachypnea or respiratory distress. Breath sounds: Normal breath sounds. No wheezing, rhonchi or rales. Abdominal: General: Abdomen is flat. Bowel sounds are normal. Palpations: Abdomen is soft. Tenderness: There is no abdominal tenderness. Skin: General: Skin is warm and dry. Neurological: General: No focal deficit present. Mental Status: She is alert. CURRENT MEDICATIONS: IV infusions:heparin, Last Rate: 1,800 Units/hr (08/20/24 0313) Scheduled medications: PRN:iv contrast, , DIRECTED PRN heparin RATE CHANGE bolus, 1,000-10,000 Units, PRN sodium chloride 0.9 % (flush), 2-10 mL, DIRECTED PRN And perflutren lipid microspheres, 1.3 mL, DIRECTED PRN NaCl 0.9%, 20 mL, PRN [Transfer Hold] oxyCODONE-acetaminophen, 1-2 tablet, q 6 H PRN [Transfer Hold] acetaminophen, 325 mg, q 8 H PRN VENTILATOR INFORMATION: Settings: Patient Data: Weaning Data: ICU Checklist A= Assess, Prevent, Manage Pain C= Choice of Sedation and Analgesia B= Both Spontaneous Awakening and Breathing Trials D= Delirium: Assess, Prevent and Manage E= Early Mobility/Excercise ICU Mobility: F= Family Engagement and Empowerment ICU Disposition: Prevention: VTE Prophylaxis: Lines: Lines, Drains, and Airways Line Duration Peripheral 08/20/24 0205 Left Antecubital 20 Gauge <1 day Peripheral 08/20/24 0207 [facility] Right Hand 20 Gauge <1 day Please note, the time of this note does not reflect the time I saw this patient today, but the time of this documentation. I have confirmed and edited as necessary, the PFSH and ROS obtained by others. Physical Exam listed above was completed in entirety today and is unchanged from except where noted. Assessment AND Plan ASSESSMENT Ms. Bekah Salgado is a 64 year old female with PMH of HLD and osteoarthritis who presented to [facility] on 08/20 for evaluation of shortness of breath. Active Hospital Problems Diagnosis Date Noted Bilateral pulmonary embolism (HCC) 08/20/2024 Acute cor pulmonale (HCC) 08/20/2024 Acute hypoxemic respiratory failure (HCC) 08/20/2024 S/P total right hip arthroplasty 08/20/2024 Lactic acidosis 08/20/2024 PLAN #Acute bilateral pulmonary emboli with acute cor pulmonale #Acute hypoxic respiratory failure -Started on heparin load, gtt in ED -Transition to enoxaparin -US negative for proximal DVT -Echo pending -Orthopedic surgery cleared for tPA if needed -Possible thrombectomy with vascular surgery pending echo #s/p total right hip arthroplasty -Ortho following -Cleared for tPA if needed -Outpatient follow up with primary surgeon #Mild normocytic anemia -Monitor CBC -Maintain Hb > 7 Code Status: Full Code Plan of care discussed with: Dr. Jillian CORREA SERVICE PAGER: For questions and/or concerns please page #[phone]. For consultation please page #[phone]. Some elements, including but not limited to the Review of Systems, Physical Examination, Impression, and Assessment/Plan have been copied from the note yesterday, but have been updated where appropriate and noted, and reflect current medical decision making from today, 08/20/2024. SIGNATURE: Kit Clark DO PATIENT NAME: Bekah Salgado DATE: August 20, 2024 TIME: 6:16 AM PAGER#: N/A CONSULT Observed: 08/20/2024 6:04 AM Status: COMPLETED [facility] [id number] Author: LEELEE ROUSE MD Service: General Surgery Author Type: Resident Type: Consults Filed: 08/20/2024 18:01 Note Text: Attestation signed by Leelee Rouse MD at 08/20/2024 6:01 PM Attending Note I personally saw and examined the patient. I reviewed the resident's note. I agree with the resident's assessment and plan unless otherwise noted. No Right heart strain seen on Echo. DVT US with calf DVT only. No vascular surgery intervention needed at this time. Will sign off, please call with questions/concerns Signature: Leelee Rouse MD Date: 08/20/2024 Time: 6:00 PM CONSULT: Vascular Surgery Service SERVICE DATE: 08/20/2024 SERVICE TIME: 6:04 AM REASON FOR CONSULT: Bilateral PE REQUESTING PHYSICIAN: Dr. Devyn Garcia Subjective 64 year old female with PMHx of HLD, Osteoarthritis who on 08/18 underwent an Elective Total Right Hip Arthroplasty. Surgery was uncomplicated until last night when she had a syncopal episode with respiratory distress at home. Upon arrival at the hospital she had a CTPE collected which demonstrated Bilateral pulmonary thromboemboli primarily in distal R main in R lobar with R ventricle enlargement concerning for R heart strain; additionally she had a DVT US collected which was negative for proximal DVT in b/l LE, but positive for calf DVT in RLE. Vascular surgery was consulted for potential intervention. I evaluated the Pt at bedside. She is currently requiring 10L of supplemental oxygen. She remains hemodynamically stable and has been started on heparin gtt. Other than some mild residual shortness of breath she has no significant complaints at this time. FUNCTIONAL STATUS: Independent No past medical history on file. No past surgical history on file. No family history on file. Social History Tobacco Use Smoking status: Former acetaminophen (TYLENOL) 500 mg tablet, Take 1,000 mg by mouth every 6 hours as needed for pain., Disp: , Rfl: Aspirin 81 mg tab, Take 81 mg by mouth two times a day., Disp: , Rfl: docusate sodium (COLACE) 100 mg capsule, Take 100 mg by mouth two times a day., Disp: , Rfl: meloxicam (MOBIC) 15 mg tablet, Take 15 mg by mouth once daily., Disp: , Rfl: oxyCODONE IR (ROXICODONE) 5 mg immediate release tablet, Take 5 mg by mouth every 6 hours as needed for pain., Disp: , Rfl: [address] (PROTONIX) 40 mg tablet, Take 40 mg by mouth once daily., Disp: , Rfl: polyethylene glycol 3350 17 gram packet, Take 17 g by mouth once daily. Dissolve dose in 4 - 8 ounces of liquid and take as directed., Disp: , Rfl: traMADol (ULTRAM) 50 mg tablet, Take 50 mg by mouth every 6 hours as needed for pain., Disp: , Rfl: vit B complx-folic ac-C-biotin 1 mg-60 mg- 300 mcg tab, Take 1 tablet by mouth once daily., Disp: , Rfl: owlqbbyk-nkyv-wvpkb-oreg-capry (CANDICIDAL) 100 mg-150 mg- 50 mg-150 mg cap, Take 1 tablet by mouth once daily., Disp: , Rfl: cyanocobalamin, vitamin B-12, 2,000 mcg tab, Take 1 tablet by mouth once daily., Disp: , Rfl: Fnvnl-3-DGU-EPA-Fish Oil (FISH OIL) 1,000 (120-180) mg cap, Take 1 g by mouth two times a day., Disp: , Rfl: cholecalciferol (VITAMIN D) 1,000 unit tab tablet, Take 1,000 Units by mouth once daily., Disp: , Rfl: Current Facility-Administered Medications Medication Dose Route Frequency iv contrast (radiology procedure) INTRAVENOUS DIRECTED PRN heparin iv infusion 25,000 units in NaCl 0.45% 250 mL STANDARD NOMOGRAM 0-3,000 Units/hr INTRAVENOUS CONTINUOUS And heparin RATE CHANGE bolus 1,000-10,000 Units for subtherapeutic PTTAC results 1,000-10,000 Units INTRAVENOUS PRN sodium chloride 0.9 % (flush) 2-10 mL (BD POSIFLUSH) 2-10 mL INTRAVENOUS DIRECTED PRN And perflutren lipid microspheres 1.1 mg/mL 1.3 mL injection (DEFINITY) 1.3 mL INTRAVENOUS DIRECTED PRN NaCl 0.9% iv flush bag 20 mL INTRAVENOUS PRN [Transfer Hold] oxyCODONE-acetaminophen 5-325 mg 1-2 tablet (PERCOCET) 1-2 tablet ORAL q 6 H PRN [Transfer Hold] acetaminophen 325 mg tab(s) (TYLENOL) 325 mg ORAL q 8 H PRN Allergies As of Date: 08/20/2024 Allergen Noted Reaction MONOSODIUM GLUTAMATE 11/21/2015 Other: See Comments Fully Assessed 08/20/2024 COMPLETE REVIEW OF SYSTEMS: Negative unless otherwise noted in HPI Objective PHYSICAL EXAM: Physical Exam Performed: GENERAL: No distress, Alert NEURO: AANDOx3, CN II-XII grossly intact HEENT: normocephalic, atraumatic LUNGS: Unlabored breathing, equal chest rise bilaterally, requiring 10L supplemental oxygen at this time CARDIAC: Regular rate, warm and well perfused distal extremities ABDOMEN: Soft, non-tender, non-distended EXTREMITIES: BAXTER, No deformities, No edema SKIN: Skin color, texture, turgor normal, No rashes or lesions BP 95/60 Pulse 77 Temp (Src) 97.7 (Oral) Resp 20 Ht 6' 0" (1.83m) Wt 220 lb (99.8kg) SpO2 97% BMI 29.83 kg/(m2). O2 Therapy: Nasal Cannula-Humidified (7-15 LPM), Liters (Numeric Only): 10 DATA: Labs: Recent Labs 08/20/24 0259 08/20/24 0229 08/20/24 0207 NA -- 135* -- K -- 3.7 -- CHLOR -- 101 -- CO2 -- 21* -- BUN -- 20 -- CREAT -- 1.07* -- GLUC -- 131* -- ANION -- 13 -- CA -- 8.6 -- MG -- 2.1 -- ALB -- 3.8* -- AST -- 24 -- ALT -- 16 -- ALKPHOS -- 63 -- TBILI -- 0.4 -- WBC -- 9.72 -- HB -- 10.1* -- HCT -- 31.2* -- PLT -- 213 -- LACT -- -- 2.2* INR 1.0 -- -- Diagnostic tests reviewed for today's visit: Most recent labs and imaging results. US DVT LOWER BILATERAL Final Result IMPRESSION: Negative study for proximal DVT in the left and right lower extremities. Positive study for acute calf DVT in the right lower extremity. Negative study for superficial thrombophlebitis in the imaged segments of the left and right lower extremities. Fire Adjuster: JONNA Transcribe Date/Time: Aug 20 2024 5:05A Dictated by : FELIPE ALMODOVAR MD This examination was interpreted and the report reviewed and electronically signed by: FELIPE ALMODOVAR MD on Aug 20 2024 5:06AM EST ULTRASOUND, POC Final Result US CARDIAC (POC) ED USE ONLY Final Result CTA CHEST (NONGATED) W IVCON PE Final Result IMPRESSION: 1. Bilateral pulmonary thromboemboli with findings concerning for heart strain. 2. No evidence of pulmonary infarct. Thin bilateral pleural effusions with dependent atelectasis. 4. Findings were conveyed and confirmed by secure Epic Chat to Dr. Travis Weston by Dr. Alma Dudley at 4:20 AM on 08/20/2024. Fire Adjuster: [facility] Transcribe Date/Time: Aug 20 2024 4:10A Dictated by : ALMA DUDLEY MD This examination was interpreted and the report reviewed and electronically signed by: ALMA DUDLEY MD on Aug 20 2024 4:44AM EST Problem List Bilateral pulmonary embolism (HCC) (POA: Yes) Acute cor pulmonale (HCC) (POA: Status not on file) Acute hypoxemic respiratory failure (HCC) (POA: Status not on file) S/P total right hip arthroplasty (POA: Status not on file) Lactic acidosis (POA: Status not on file) Assessment/Plan Assessment: Bekah Salgado is a 64 year old female presented with past medical history of HLD, Osteoarthritis who is POD2 from R Hip arthroplasty for whom vascular surgery is consulted for provoked bilateral pulmonary embolisms with concern for Right heart strain Plan: Bilateral PE - CTPE: Bilateral pulmonary thromboemboli primarily in distal R main in R lobar with R ventricle enlargement concerning for R heart strain - DVT US: negative for proximal DVT in b/l LE, positive for calf DVT in RLE - BNP elevated at 2089, troponins elevated - Continue heparin gtt - Cleared for tPA from orthopedic surgery perspective - Pt requires formal ECHO - pending ECHO, Pt would likely benefit from mechanical thrombectomy, will coordinate timing and operative space - NPO/IVF - Rest of care per primary - Code status: Code Status: Full Code - Discussed with attending Dr. Jamison SIGNATURE: Jose Yepez DO PATIENT NAME: Bekah Salgado DATE: 08/20/2024 TIME: 6:04 AM Pager: See below. Vascular Surgery Service Pager: For questions or concerns Mon-Fri 6a-5p please page [phone]. After 5pm and on Weekends and Holidays, please page [phone] if in ICU or [phone] if on RNF. STAPHYLOCOCCUS AUREUS AND MR SA SCREEN, PCR, NASAL Collected: 08/20/2024 4:59 AM Status: F Source: [facility] Order Comment: Specimen Type : SWAB Ordering Facility: [facility] Address: [address] [place] [address] TYPE CODE TESTS RESULT OUT OF RANGE REFERENCE UNITS LAB 64980-4(LOINC) SA+MRSA Pnl Nose DMITRIY+probe Not Detected Not Detected Performed By: #### SAPCR ### # [facility] CLIA [id number] [address] [place] [id number] [facility] TROPONIN T (SECOND) Collected: 08/20/2024 4:48 AM Status: F Source: [facility] Order Comment: Specimen Type : BLOOD SPECIMEN Ordering Facility: [facility] Address: [address] [place] [address] TYPE CODE TESTS RESULT OUT OF RANGE REFERENCE UNITS LAB 61361-0(LOINC) Troponin T SerPl HS-mCnc 201 High <12 ng/L Performed By: #### [id number] # ### [facility] CLIA [id number] [address] CONSULT Observed: 08/20/2024 4:27 AM Status: COMPLETED Source: [facility] HNO ID: [id number] Author: TIM FAM MD Service: Orthopaedic Surgery Author Type: Physician Type: Consults Filed: 08/20/2024 14:30 Note Text: ORTHOPAEDIC SURGERY CONSULT Pt: BEKAH SALGADO Date of Consultation: 08/20/2024 Physician Consulted: Dr. Fam Reason for Consultation: Recent right total hip arthroplasty Consultation requested by Dr. Walsh for an opinion regarding recent right total hip arthroplasty. My final recommendations will be communicated back to the requesting physician by way of shared medical record or letter via US mail 64 year old female presented to [facility] ED on 08/20/2024 for evaluation of dizziness and shortness of breath. Imaging in the emergency department showed concern for bilateral pulmonary emboli. The patient underwent an elective right total hip arthroplasty at an outside facility approximately 2 days ago. They have been recovering well up until this point. Patient was given 81 mg aspirin twice daily for DVT prophylaxis. States she has been taking this as prescribed. She denies any recent falls or trauma. The patient denies fevers, chills, nausea, vomiting and other constitutional symptoms at this time. The patient has no additional orthopaedic complaints at this time. No past medical history on file. No past surgical history on file. Allergies: Monosodium Glutamate Current Facility-Administered Medications Medication Dose Route Frequency iv contrast (radiology procedure) INTRAVENOUS DIRECTED PRN heparin iv infusion 25,000 units in NaCl 0.45% 250 mL STANDARD NOMOGRAM 0-3,000 Units/hr INTRAVENOUS CONTINUOUS And heparin RATE CHANGE bolus 1,000-10,000 Units for subtherapeutic PTTAC results 1,000-10,000 Units INTRAVENOUS PRN sodium chloride 0.9 % (flush) 2-10 mL (BD POSIFLUSH) 2-10 mL INTRAVENOUS DIRECTED PRN And perflutren lipid microspheres 1.1 mg/mL 1.3 mL injection (DEFINITY) 1.3 mL INTRAVENOUS DIRECTED PRN oxyCODONE-acetaminophen 5-325 mg 1-2 tablet (PERCOCET) 1-2 tablet ORAL q 6 H PRN acetaminophen 325 mg tab(s) (TYLENOL) 325 mg ORAL q 8 H PRN No current outpatient medications on file. No family history on file. Social History Tobacco Use Smoking status: Former ROS: 10 pt ROS neg except in HPI O: Vitals: BP 131/64 Pulse 88 Resp 22 Wt 99.8 kg (220 lb) SpO2 (!) 94% Physical exam: General: Alert, answers all questions appropriately, no acute distress. Cooperative throughout entire interview and exam Right lower Extremity: Mepilex dressing in place to right hip clean/dry/intact Alignment normal. No gross deformities. No swelling, ecchymosis, or erythema. SILT Hernandez/Sa/DP/SP/T. Motor intact EHL/DF/PF. Compartments of lower leg and thigh are soft and compressible. Tolerates passive stretch of the toes DP/PT pulses palpable; BCR all digits. Labs: BMP: Sodium 135 08/20/2024 Potassium 3.7 08/20/2024 Chloride 101 08/20/2024 CO2 21 08/20/2024 BUN 20 08/20/2024 Creatinine 1.07 08/20/2024 Glucose 131 08/20/2024 CBC: WBC 9.72 08/20/2024 Hemoglobin 10.1 08/20/2024 Hematocrit 31.2 08/20/2024 Platelet Count 213 08/20/2024 COAGS: INR 1.0 08/20/2024 SED RATE/CRP: No results found for this basename: wsr:*,crp:* Imaging: - No new orthopedic imaging to review A/P: 64 year old female with bilateral pulmonary emboli. Patient is postop day 2 from elective right total hip arthroplasty at outside facility. -Medical management per primary -Pain control -DVT ppx: Per primary, okay for tPA if needed from orthopedic perspective -Weight bearing status: Weightbearing as tolerated RLE -Diet: Okay for diet -PT/OT -Posterior hip precautions -Dispo: Outpatient follow-up with performing surgeon Patient plan was discussed with Dr. Fam, all in agreement with assessment and plan Vinicio Bentley DO Resident, Orthopaedic Surgery Pager #: [phone] 08/20/2024 4:29 AM Please page [phone] from 5p-6a and on weekends for any issues. Attending Note I personally saw and examined the patient. I reviewed the resident's note. I agree with the resident's assessment and plan unless otherwise noted. Continue medical therapy for bilateral pulmonary embolism. Mobilize with physical therapy. Weight-bear as tolerated right lower extremity. X-rays showed no acute complication. This was discussed with the patient and family members at bedside. Questions answered. Signature: Tim Fam MD Date: 08/20/2024 Time: 2:28 PM US DVT LOWER ELI Observed: 08/20/2024 4:00 AM Status: F Source: [facility] * * *Final Report* * * DATE OF EXAM: Aug 20 2024 4:00AM [facility] 1005 - US DVT LOWER ELI / PROCEDURE REASON: Pulmonary embolism (PE) suspected, high prob * * * * Physician Interpretation * * * * EXAMINATION: RIGHT AND LEFT LOWER EXTREMITY DEEP VENOUS ULTRASOUND WITH DOPPLER IMAGING CLINICAL HISTORY: Known pulmonary embolism TECHNIQUE: Grayscale with compression maneuvers, color Doppler and spectral Doppler imaging of the right and left proximal deep veins was performed. Grayscale with compression maneuvers of the right and left peroneal and posterior tibial veins was performed. The right and left great and small saphenous veins were evaluated at their insertion to the deep system. Images were obtained and stored in a permanent archive. MQ: [id number] COMPARISON: None RESULT: RIGHT LOWER EXTREMITY PROXIMAL DEEP VEINS Distal External Iliac, Common Femoral and Proximal Profunda Veins: Compression: Normal Doppler: Normal, spontaneous respirophasic flow. Normal response to augmentation. Femoral vein: Compression: Normal Doppler: Normal, spontaneous respirophasic flow. Normal response to augmentation. Popliteal vein: Compression: Normal Doppler: Normal, spontaneous respirophasic flow. Normal response to augmentation. CALF DEEP VEINS Peroneal veins: Abnormal compression. Posterior tibial veins: Abnormal compression. Gastrocnemius and Soleal veins: Not imaged. SUPERFICIAL VEINS Great saphenous: Patent and compressible at insertion into common femoral vein; not otherwise assessed. Small Saphenous: Patent and compressible in the proximal calf, not otherwise assessed. LEFT LOWER EXTREMITY PROXIMAL DEEP VEINS Distal External Iliac, Common Femoral and Proximal Profunda Veins: Compression: Normal Doppler: Normal, spontaneous respirophasic flow. Normal response to augmentation. Femoral vein: Compression: Normal Doppler: Normal, spontaneous respirophasic flow. Normal response to augmentation. Popliteal vein: Compression: Normal Doppler: Normal, spontaneous respirophasic flow. Normal response to augmentation. CALF DEEP VEINS Peroneal veins: Normal compression. Posterior tibial veins: Normal compression. Gastrocnemius and Soleal veins: Not imaged. SUPERFICIAL VEINS Great saphenous: Patent and compressible at insertion into common femoral vein; not otherwise assessed. Small Saphenous: Patent and compressible in the proximal calf, not otherwise assessed. IMPRESSION: Negative study for proximal DVT in the left and right lower extremities. Positive study for acute calf DVT in the right lower extremity. Negative study for superficial thrombophlebitis in the imaged segments of the left and right lower extremities. Fire Adjuster[facility] Transcribe Date/Time: Aug 20 2024 5:05A Dictated by : FELIPE ALMODOVAR MD This examination was interpreted and the report reviewed and electronically signed by: FELIPE ALMODOVAR MD on Aug 20 2024 5:06AM EST [id number] PROCEDURE Observed: 08/20/2024 3:29 AM Status: COMPLETED Source: [facility] HNO ID: [id number] Author: DEVYN GARCIA MD Service: Critical Care Author Type: Physician Type: Procedures Filed: 08/20/2024 06:58 Note Text: BEDSIDE PROCEDURE NOTE ULTRASOUND, POC Type of Point of Care Ultrasound: Basic Cardiac Date/Start Time: 08/20/2024 3:29 AM Date/Stop Time: 08/20/2024 3:29 AM Performed by: Devyn Garcia MD Authorized by: Devyn Garcia MD Where was Patient When this Procedure was Performed: Bedside/Unscheduled Procedure Room Basic Cardiac US - Procedure Details Exam Indications: Hypoxia Study Limitations: Sub-Optimal Positioning and Body Habitus Left Ventricle Size Appears: Normal LV Systolic Function Appears: Hyperdynamic PROC DOC POC US Cardiac Basic Right Ventricle Size CCHS: Moderately dilated on limited views. RV Systolic Function Appears: Normal Pericardial Effusion (and Size if Present): None Image Captured: Yes Impression: Limited views - moderately dilated RV SIGNATURE: Devyn Garcia MD PATIENT NAME: Bekah Salgado DATE: August 20, 2024 TIME: 3:29 AM HISTORY PHYSICAL Observed: 08/20/2024 3:00 AM Status: COMPLETED Source: [facility] HNO ID: [id number] Author: DEVYN GARCIA MD Service: Critical Care Author Type: Resident Type: H&P Filed: 08/20/2024 03:38 Note Text: Attestation signed by Devyn Garcia MD at 08/20/2024 3:38 AM [facility] STAFF PHYSICIAN NOTE OF PERSONAL INVOLVEMENT IN CARE I have reviewed the history and physical examination obtained and documented by the resident and I personally participated in the ng components. I have discussed the case and management of the patient's care. See my note documented separately. Devyn Garcia MD 3:38 AM August 20, 2024 PERT NOTE HPI: 64 year old, female, Symptoms dyspnea and Onset today hypoxic in 60's. Cancer: No. Chronic Heart Disease: No. Chronic Pulmonary Disease: No. Diabetes:No. On Anticoagulation at Home: No. PE Description: Size and location: Right heart strain: mild-mod formal echo pending. By EKG: . By CT: By Echo: . By BNP or NT-pro-BNP: Elevated Troponin (necrosis): NA. Vital signs: HR BP RR SpO2 FiO2 Temp: BP 131/64 Pulse 103 Resp 18 Wt 220 lb (99.8kg) SpO2 96% O2 Therapy: Non-Rebreather Mask, Liters (Numeric Only): 15 Current treatment Adequate AC: Yes, . Hemodynamic support:Yes, . Respiratory support: Yes, . Thrombolysis:Yes. LABS: No results found for: "BUN" No results found for: "CREAT" Platelet Count Date Value Ref Range Status 08/20/2024 213 150 - 400 k/uL Final Hemoglobin Date Value Ref Range Status 08/20/2024 10.1 (L) 11.5 - 15.5 g/dL Final No results found for: "BNP" No results found for: "PBNP" No results found for: "TROPT" No results found for: "APTT" No results found for: "PT" No results found for: "INR" For normotensive patients, calculate the: http://www.peprognosis.org/ sPESI Troponin, BNP or NT-proBNP, DVT Risk of 30-day mortality %. Risk of 30-day complicated course %. Justin Score: Predictor Points SBP 90-100 mmHg Elevated Cardiac Troponin 0 RV Dysfunction (Echocardiogram or CT Scan 0 Heart rate >110 beats per min 0 Total Score: 0 Stage Stage Stage I II III Points 0-2 3-4 >4 30-day PE-related complications % 4.2 10.8 29.2 30-day PE-related mortality % 1.7 5.0 15.5 Contraindications to Lysis: Absolute contraindications Prior intracranial hemorrhage: No. Known structural cerebral vascular lesion: No. Known malignant intracranial neoplasm: No. Ischemic stroke within three months: No. Suspected aortic dissection: No. Active bleeding or bleeding diathesis (excluding menses): No. Significant closed-head trauma or facial trauma within three months: No. Relative contraindications History of chronic, severe, poorly controlled hypertension:No. Severe uncontrolled hypertension on presentation (SBP >180 mmHg or DBP >110 mmHg): No. History of ischemic stroke more than three months prior:No. Traumatic or prolonged (>10 minute) CPR or major surgery less than three weeks: No. Internal bleeding within two to four weeks: No. Noncompressible vascular punctures: No. Recent invasive procedure: No. : No. Active peptic ulcer: No Pericarditis or pericardial fluid: No Current use of anticoagulants with an INR >1.7 or PT >15 seconds: No Age >75 years: No Diabetic retinopathy: No IMPRESSION AND RECOMMENDATIONS Ms. Bekah Salgado female 64 year old presents to ED for dyspnea. Recent hip surgery. Plan Provoked PE in setting of recent hip fracture 08/18 Bilateral pulmonary embolism intermediate risk - with mild/mod right heart strain Acute hypoxic respiratory failure Acute normocytic anemia Pre/syncope Plan -Admit ICU -heparin gtt--> switch to lovenox -US DVT -Formal ECHO ECHO -Orthopedics consult -Vascular consult -PT/OT -Pain meds for hip FLUABV+SARS-COV-2+RSV PNL RE SP DMITRIY+PROBE Observed: 08/20/2024 2:59 AM Status: F Source: [facility] SARS-COV-2 (AGENT OF COVID-1 9) RNA: Not detectedINFLUENZA A RNA: Not detectedINFLUENZA B RNA: Not detectedRESPIRATORY SYNCYTIAL VIRUS (RSV) RNA: Not detected Performed By: #### [id number] # ### [facility] CLIA [id number] [address] [place] SENS[employer] TROPONIN T (INITIAL) Collected: 08/20/2024 2:59 AM Status: F Source: [facility] Order Comment: Specimen Type : BLOOD SPECIMEN Ordering Facility: [facility] Address: [address] [place] [address] TYPE CODE TESTS RESULT OUT OF RANGE REFERENCE UNITS LAB 73665-0(LOINC) Troponin T SerPl HS-mCnc 192 High <12 ng/L Performed By: #### [id number] # ### [facility] CLIA [id number] [address] [place] [address] [place] PT PNL PPP Collected: 08/20/2024 2:59 AM Status: F Source: [facility] Order Comment: Specimen Type : BLOOD SPECIMEN Ordering Facility: [facility] Address: [address] [place] [address] TYPE CODE TESTS RESULT OUT OF RANGE REFERENCE UNITS LAB 5902-2(LOINC) Prothrombin time 10.5 9.7-13.0 sec LAB 6301-6(LOINC) INR PPP 1.0 0.9-1.3 Result Comment: Vitamin K An tagonist (VKA) Therapeutic Range: INR 2 to 3 (Target INR of 2.5) Note: For patients treated with VKA drugs, such as warfarin, the [place] [employer] 2012 Guideline recommends a therapeutic INR range of 2 to 3 (target INR of 2.5). This recommendation includes high-risk patients with antiphospholipid syndrome with previous arterial or venous thromboembolism, current-generation mechanical or bioprosthetic aortic heart valve replacement. Note: Patients with mechanical aortic valve replacement and additional risk factors for thromboembolic events (atrial fibrillation, previous thromboembolism, LV dysfunction, hypercoagulable conditions) or an older generation mechanical AVR (i.e., ball in-Cage) or any mechanical MVR should have a INR therapeutic range of 2.5 to 3.5 (target INR of 3). Keon CARREON, et al. Chest 2012, 141:7S-47S Tra WHITE et al. [facility] 2017, 70: 252-289 Performed By: #### 66438-7 # ### [facility] CLIA [id number] [address] OF [facility] PROGRESS Observed: 08/20/2024 2:46 AM Status: COMPLETED Source: [facility] HNO ID: [id number] Author: DEVYN GARCIA MD Service: Critical Care Author Type: Physician Type: Progress Notes Filed: 08/20/2024 03:39 Note Text: [facility] STAFF PHYSICIAN NOTE OF PERSONAL INVOLVEMENT IN CARE IMPRESSION: Patient is a 64 year old female with R hip osteoarthritis s/p R total hip arthoplasty who presented to the ED with Shortness of Breath and dizziness/syncope when sitting up. Found to have the following: Acute bilateral pulmonary emboli with acute cor pulmonale - primarily distal R main into R lobar with some L lobar into segmental - provoked in setting of recent orthopedic surgery; strain on EKG/by labs, by CT on my read ; HDS, not tachycardic at rest but on 10 L NC - intermediate high risk PE Acute hypoxic respiratory failure Recent total R hip arthoplasty on 08/18 Mild normocytic anemia Mild lactic acidosis PLAN: -admit to ICU for monitoring -clot burden distal but may be amenable to thrombectomy if need be - need to discuss with ortho if candidate for tPA should she decompensate - vascular evaluation in the AM -wean O2 for sats >90% -given heparin bolus and started on drip - would transition to lovenox pending aPTT results -DVT US BL -POCUS and formal ECHO in AM -full code This patient has a high probability of sudden, clinically significant deterioration, which requires the highest level of physician preparedness to intervene urgently. I managed/supervised life or organ supporting interventions that required frequent physician assessment. I devoted my full attention to the direct care of this patient for the amount of time indicated below. Time I spent with family or surrogate(s) is included only if the patient was incapable of providing the necessary information or participating in medical decision making. Time devoted to teaching is not included. Critical Care Documentation: The patient has the following organ/system impairment(s): Pulmonary embolism and Respiratory failure (Acute, with Hypoxemia) Patient/Family/Staff Updated Time spent providing critical care services: 50 minutes excluding procedures. SIGNATURE: Devyn Garcia MD [facility]:[phone] DATE of SERVICE: August 20, 2024 CTA CHEST (NON GATED) W IVCO N PE Observed: 08/20/2024 2:36 AM Status: F Source: [facility] * * *Final Report* * * DATE OF EXAM: Aug 20 2024 2:36AM [facility] 0564 - CTA CHEST (NON GATED) W IVCON PE / PROCEDURE REASON: Pulmonary embolism (PE) suspected, high prob * * * * Physician Interpretation * * * * EXAMINATION: CHEST CTA (NON GATED) WITH CONTRAST (PULMONARY EMBOLISM PROTOCOL) Clinical History: Recent hip surgery, now acute shortness of breath, pulmonary embolism suspected. Technique: Spiral CT acquisition of the chest from the thoracic inlet to the upper abdomen following IV contrast. Axial 1 and 3 mm thick slices plus coronal and sagittal reformatted images. MQ: CTCP_5 Contrast: 100 mL Omnipaque [address] Radiation dose: Integrated Dose-length product (DLP) for this visit = 304 mGy*cm CT Dose Reduction Employed: Automated exposure control(AEC) and iterative recon CTA: Post-processed images (Maximum intensity Projection (MIP), Volume-rendered (VR), or Surface shaded display images (SSD) were created, reviewed and archived. Comparison: No relevant prior studies available. RESULT: Limitations: None. Evaluation for thromboembolic disease: - Right heart chambers: No thromboembolic disease. - Main pulmonary arteries: No thromboembolic disease. - Lobar pulmonary arteries: Tubular filling defects to the posterior segment of the right upper lobe, at the lobar bifurcation to the right middle and lower lobes, extending to some subsegments, and small volume to the subsegmental left upper lobe and small volume at the bifurcation to the lingula and left lower lobe. - Additional pulmonary artery findings: The main pulmonary artery is enlarged. Lines, tubes, and devices: None. Lung parenchyma and airways: Thin bibasilar dependent lung opacity most suggestive of atelectasis. No evidence of pulmonary infarct. No consolidation. No suspicious pulmonary nodule. The central airways are patent. Pleural space: Thin bilateral pleural effusions. Lower neck, lymph nodes, and mediastinum: The imaged thyroid gland is normal. No lymphadenopathy in the supraclavicular, axillary, mediastinal, or hilar regions. Heart, pericardium, and thoracic vessels: The right ventricle is enlarged relative to the left with mild bowing of the interventricular septum, concerning for heart strain. RV /LV ratio is about 1.5. The thoracic aorta is normal in caliber. The cardiac chambers are normal in size. No coronary artery atherosclerotic calcifications are noted, although the study is not optimized for coronary assessment. No pericardial effusion or thickening. Bones and soft tissues: No acute osseous process. Indeterminant transverse cortical irregularity with sclerosis of the upper sternum, may be related to remote trauma. Upper abdomen: No acute abnormality in the imaged upper abdomen. Partial visualization of hepatic hypodensity, suggestive of simple cyst. Localizer images: No additional findings. IMPRESSION: 1. Bilateral pulmonary thromboemboli with findings concerning for heart strain. 2. No evidence of pulmonary infarct. Thin bilateral pleural effusions with dependent atelectasis. 4. Findings were conveyed and confirmed by secure Epic Chat to Dr. Travis Weston by Dr. Alma Dudley at 4:20 AM on 08/20/2024. Fire Adjuster: PSCDelores Transcribe Date/Time: Aug 20 2024 4:10A Dictated by : ALMA DUDLEY MD This examination was interpreted and the report reviewed and electronically signed by: ALMA DUDLEY MD on Aug 20 2024 4:44AM EST [id number] ALLIED HEALTH Observed: 08/20/2024 2:31 AM Status: COMPLETED Source: [facility] HNO ID: [id number] Author: BRICE MAGDALENO RT(R) Service: Radiology Author Type: Technologist Type: Allied Health Filed: 08/20/2024 02:31 Note Text: Radiology Service Progress Note DATE OF SERVICE: August 20, 2024 TIME: 2:31 AM PATIENT IDENTITY VERIFICATION COMPLETED USING TWO (2) STANDARD IDENTIFIERS: Name and Date of confirmed by patient verbally and Name and Date of confirmed by identification band. FALL SCREENING: Has the patient had 2 falls in the last year or 1 fall with injury or currently using an Ambulatory Assistive Device (Walker, Cane, Wheelchair, Crutches, etc.)? Emergency Room Patient: Screened in ED PATIENT GENDER DATA: Assigned female at . status: : No status: NO. PATIENT RELEVANT IMPLANT DATA REVIEWED: Not Applicable PATIENT PRESENTS WITH AN IMPLANTABLE OR ATTACHED ACDS BLOCK 1 OPERATOR: No ALLERGIES: Reviewed and unchanged CONTRAST ALLERGY: NO. EXAM: CT -CONTRAST INDUCED NEPHROPATHY RISK FACTORS: Patient age > 60 years CREATININE: No results found for: "CREAT", "EGFROTH", "EGFRAA" P.O.C.T. RESULTS: N/A August 20, 2024 TREATMENT: N/A PERIPHERAL IV DATA: Inpatient - refer to LDA documentation RADIOLOGY DEPARTMENT: CT; Exam(s) Completed: PE Study SIGNATURE: RT Vladislav(R) PATIENT NAME: Bekah Salgado DATE: August 20, 2024 TIME: 2:31 AM COMP METAB 2000 PNL SERPL Collected: 2:29 AM Status: F Source: [facility] Order Comment: Specimen Type : BLOOD SPECIMEN Ordering Facility: [facility] Address: [address] [place] [address] TYPE CODE TESTS RESULT OUT OF RANGE REFERENCE UNITS LAB 2885-2(LOINC) Prot SerPl-mCnc 6.0 Low 6.3-8.0 g/dL LAB 1751-7(LOINC) Albumin SerPl-mCnc 3.8 Low 3.9-4.9 g/dL LAB 94301-2(LOINC) Calcium SerPl-mCnc 8.6 8.5-10.2 mg/dL LAB 1975-2(LOINC) Bilirub SerPl-mCnc 0.4 0.2-1.3 mg/dL LAB 6768-6(LOINC) ALP SerPl-cCnc 63 34-123 U/L LAB 51624-3(LOINC) AST SerPl w P-5'-P-cCnc 24 13-35 U/L LAB 1743-4(LOINC) ALT SerPl w P-5'-P-cCnc 16 7-38 U/L LAB 2345-7(LOINC) Glucose SerPl-mCnc 131 High 74-99 mg/dL Result Comment: The [place] [employer] Association (ADA) provides guidance for cutoff values for fasting glucose and random glucose. The ADA defines fasting as no caloric intake for at least 8 hours. Fasting plasma glucose results between 100 to 125 mg/dL indicate increased risk for diabetes (prediabetes). Fasting plasma glucose results greater than or equal to 126 mg/dL meet the criteria for diagnosis of diabetes. In the absence of unequivocal hyperglycemia, results should be confirmed by repeat testing. In a patient with classic symptoms of hyperglycemia or hyperglycemic crisis, random plasma glucose results greater than or equal to 200 mg/dL meet the criteria for diagnosis of diabetes. Reference: Standards of Medical Care in Diabetes 2016, [place] [employer] Association. Diabetes Care. 2016.39(Suppl 1). LAB 3094-0(LOINC) BUN SerPl-mCnc 20 7-21 mg/ dL LAB 2160-0(LOINC) Creat SerPl-mCnc 1.07 High 0.58-0.96 mg/dL LAB 2951-2(LOINC) Sodium SerPl-sCnc 135 Low 136-144 mmol/L LAB 2823-3(LOINC) Potassium SerPl-sCnc 3.7 3.7-5.1 mmol/L LAB 2075-0(LOINC) Chloride SerPl-sCnc 101 98-107 mmol/L LAB 2028-9(LOINC) CO2 SerPl-sCnc 21 Low 22-30 mmo l/L LAB 1863-0(LOINC) Anion Gap4 SerPl-sCnc 13 8-15 mmol/L LAB 22079-2(LOINC) Creatinine + eGFR Pnl SerPlBld 58 Low >=60 mL/min/1. 73m??? Result Comment: Estimated Gl omerular Filtration Rate (eGFR) is calculated using the 2020 CKD-EPI creatinine equation. This equation utilizes serum creatinine, sex, and age as parameters. The creatinine assay has traceable calibration to isotope dilution-mass spectrometry. Refer to KDIGO guidelines for clinical interpretation. In patients with unstable renal function, e.g. those with acute kidney injury, the eGFR may not accurately reflect actual GFR. Performed By: #### 07964-4, 2777-1, 14630-9, 17733-0 #### [facility] CLIA [id number] [address] MAGNESIUM SERPL-MCNC Collected: 08/20/2024 2:29 AM S tatus: F Source: [facility] Order Comment: Specimen Type : BLOOD SPECIMEN Ordering Facility: [facility] Address: [address] [place] [address] TYPE CODE TESTS RESULT OUT OF RANGE REFERENCE UNITS LAB 19291-0(LOINC) Magnesium SerPl-mCnc 2.1 1.7-2.3 mg/dL Performed By: #### 79089-3, 2777-1, 91874-2, 29233-4 #### [facility] CLIA [id number] [address] NT-PROBNP SERPL-MCNC Collected: 08/20/2024 2:29 AM S tatus: F Source: [facility] Order Comment: Specimen Type : BLOOD SPECIMEN Ordering Facility: [facility] Address: [address] [place] [address] TYPE CODE TESTS RESULT OUT OF RANGE REFERENCE UNITS LAB 27881-7(LOINC) NT-proBNP SerPl-mCnc 2082 High <125 pg/mL Performed By: #### 56617-4, 2777-1, 60553-4, 09746-7 #### [facility] CLIA [id number] [address] PHOSPHATE SERPL-MCNC Collected: 08/20/2024 2:29 AM S tatus: F Source: [facility] Order Comment: Specimen Type : BLOOD SPECIMEN Ordering Facility: [facility] Address: [address] [place] [address] TYPE CODE TESTS RESULT OUT OF RANGE REFERENCE UNITS LAB 2777-1([facility]) Phosphate SerPl-mCnc 3.2 2.7-4.8 mg/dL Performed By: #### 48338-8, 2777-1, 90774-3, 21033-6 #### [facility] CLIA [id number] [address] STATES OF [facility] CBC W AUTO DIFF BLD Collected: 08/20/2024 2:[address] atus: F Source: [facility] Order Comment: Specimen Type : BLOOD SPECIMEN Ordering Facility: [facility] Address: [address] [place] [address] TYPE CODE TESTS RESULT OUT OF RANGE REFERENCE UNITS LAB 6690-2(INC) WBC # Bld Auto 9.72 3.70-11.00 k/uL LAB 789-8(INC) RBC # Bld Auto 3.29 Low 3.90-5.20 m/ uL LAB 718-7(LOINC) Hgb Bld-mCnc 10.1 Low 11.5-15.5 g/dL LAB 4544-3(INC) Hct VFr Bld Auto 31.2 Low 36.0-46.0 % LAB 787-2(LOINC) MCV RBC Auto 94.8 80.0-100.0 fL LAB 785-6(LOINC) MCH RBC Qn Auto 30.7 26.0-34.0 p g LAB 786-4(LOINC) MCHC RBC Auto-mCnc 32.4 30.5-36.0 g/dL LAB 79892-5(INC) RDW RBC-Rto 13.4 11.5-15.0 % LAB 777-3(INC) Platelet # Bld Auto 213 150-400 k/uL LAB 09902-9(LOINC) PMV Bld Auto 10.7 9.0-12.7 fL LAB 770-8(LOINC) Neutrophils/leuk NFr Bld Auto 79.2 % LAB 751-8(LOINC) Neutrophils # Bld Auto 7.69 High 1.45-7.50 k/uL LAB 736-9(LOINC) Lymphocytes/leuk NFr Bld Auto 14.8 % LAB 731-0(LOINC) Lymphocytes # Bld Auto 1.44 1.00-4.00 k/uL LAB 5905-5(LOINC) Monocytes/leuk NFr Bld Auto 5.3 % LAB 742-7(LOINC) Monocytes # Bld Auto 0.52 <0.87 k/uL LAB 713-8(LOINC) Eosinophil/leuk NFr Bld Auto 0.1 % LAB 711-2(LOINC) Eosinophil # Bld Auto <0.03 <0.46 k/uL LAB 706-2(LOINC) Basophils/leuk NFr Bld Auto 0.1 % LAB 704-7(LOINC) Basophils # Bld Auto <0.03 <0.11 k/uL LAB 03691-6(LOINC) Imm Granulocytes/mounika k NFr Bld Auto 0.5 % LAB 09813-4(LOINC) Imm Granulocytes # Bld Auto 0.05 <0.10 k/uL LAB 69245-5(LOINC) nRBC/100 WBC Bld-Rto 0.0 /100 WBC LAB 771-6(LOINC) nRBC # Bld Auto <0.01 <0.01 k/u L LAB 55205-1(LOINC) Differential method Bld Auto Performed By: #### 41922-7 # ### [facility] CLIA [id number] [address] ED PROV NOTE Observed: 08/20/2024 2:19 AM Status: COMPLETED Source: [facility] HNO ID: [id number] Author: CHARANJIT WESTON MD Service: Emergency Medicine Author Type: Resident Type: ED Provider Notes Filed: 08/20/2024 06:48 Note Text: Attestation signed by Charanjit Weston MD at 08/20/2024 6:48 AM Attending Attestation Note: Ng findings confirmed. I evaluated the patient in conjunction with the resident physician. I personally examined the patient. I discussed the patient with the resident physician. I reviewed the resident physician's note. I was present for ng portions of and personally supervised any/all procedures. I personally saw the patient and performed a substantive portion of the visit including all aspects of the medical decision making. Critical Care Time I spent a total of at least 45 minutes of critical care time in the evaluation and management of this patient. This was necessary to treat or prevent deterioration of the patient's critical condition which the patient had and/or has a high probability of suddenly developing. I discussed the plan of care with the Resident Physician and/or MANI and agree with the findings documented. Critical care time excludes separately billed procedures. Signature: Charanjit Weston MD Date: 08/20/2024 Time: 6:47 AM ED Provider Note Patient Name: Bekah Salgado : 1960 SERVICE DATE: 08/20/24 History Patient presents with: Shortness of Breath: Pt had recent hip surgery and was d/c home, yesterday had a syncopal episode and then woke up overnight sob. Pt 73% on ra, placed on nrb on arrival. A/ox4 HPI 64-year-old female presents to the emergency department via EMS for worsening SOB and hypoxia. Recent history of a total R hip replacement [facility] by Dr. Josh Rocha on 08/18/24 without complication the patient states that since then she has been less ambulatory and having progressively worsening shortness of breath without cough, fever, lightheadedness, chest pain, palpitations, or abdominal pain. She states that yesterday evening she had been attempting to ambulate before sitting on her bed and then having a syncopal episode causing her to collapse on the floor. She states she called EMS to help her get back into bed but did not seek medical attention at that time. She does not remember the episode however she denies preceding chest pain, vision changes, palpitations, or headache. She states after the episode did not have any of the above symptoms either. She states that with her shortness of breath she placed a pulse ox monitor on her finger which read in the 70s and therefore called EMS for assistance. EMS states that she they found the patient sitting up comfortably saturating in the 70s on RA before coming up to the 90s on NC. They gave 2 DuoNeb treatments and route. On arrival the patient admits to SOB but denies chest pain, fever, headache, palpitations, nausea or vomiting, diarrhea or constipation, dysuria, headache, vision changes, or weakness. No past medical history on file. No past surgical history on file. No family history on file. Social History Tobacco Use Smoking status: Former Smokeless tobacco: Not on file Substance and Sexual Activity Alcohol use: Not on file Drug use: Not on file Sexual activity: Not on file ALLERGIES Allergen Reactions Monosodium Glutamate Other: See Comments Passes out Review of Systems See HPI for further details Physical Exam Vitals [08/20/24 0202] BP Pulse Temp Temp src Resp SpO2 Weight Height 131/64 (!) 103 -- -- 18 96 % 99.8 kg (220 lb) -- Physical Exam Constitutional: Appearance: She is well-developed. HENT: Head: Normocephalic and atraumatic. Mouth/Throat: Mouth: Mucous membranes are moist. Pharynx: Oropharynx is clear. Eyes: Extraocular Movements: Extraocular movements intact. Pupils: Pupils are equal, round, and reactive to light. Cardiovascular: Rate and Rhythm: Regular rhythm. Tachycardia present. Heart sounds: No murmur heard. Pulmonary: Effort: Tachypnea present. No respiratory distress. Breath sounds: Normal breath sounds. No decreased breath sounds, wheezing, rhonchi or rales. Chest: Chest wall: No mass, tenderness or edema. Musculoskeletal: Cervical back: Normal range of motion and neck supple. Right lower leg: No tenderness. No edema. Left lower leg: No tenderness. No edema. Comments: Well-healing banded surgical site to the right hip without surrounding erythema, bleeding, or drainage Skin: General: Skin is warm. Neurological: Mental Status: She is alert and oriented to person, place, and time. Psychiatric: Mood and Affect: Mood normal. Diagnostic Testing ED Labs Ordered and Reviewed VENOUS BLOOD GAS, ED-POC(AK) - Abnormal; Notable for the following components: Result Value Ref Range Base Excess,Venous(POCT) -1.2 (*) 0 - 4 mmol/L O2Hb,Venous(POCT) 43.6 (*) 60 - 85 % HGB,Venous(POCT) 10.4 (*) 12.0 - 16.0 g/dL HCT,Venous(POCT) 32.1 (*) 37.0 - 49.0 % Lactate (POCT) 2.2 (*) 0.5 - 2.0 mmol/L Glucose (POCT) 137 (*) 70 - 99 mg/dL All other components within normal limits Narrative: Meter ID:[id number] RESP #2 Paster Operator Name:Nusrat Mcdonald Location:[facility], [address] [place] [address], [address] COMPREHENSIVE METABOLIC PANEL COMPLETE BLOOD COUNT AND DIFFERENTIAL NT PRO BNP MAGNESIUM COVID AND INFLUENZA A/B AND RSV PCR, EXPEDITED Procedures ED Course / Clinical Impression Clinical Impressions as of 08/20/24 0403 Acute pulmonary embolism, unspecified pulmonary embolism type, unspecified whether acute cor pulmonale present (HCC) Shortness of breath Syncope, unspecified syncope type MDM / Disposition / Plan MDM 64-year-old female presents to the emergency department via EMS for worsening SOB and hypoxia. Recent history of a total R hip replacement [facility] by Dr. Josh Rocha on 08/18/24. See HPI for further details. Patient presents on NRB saturating 96% with a RR of 18, tachycardic to 103, otherwise normotensive. On exam the patient is no acute distress alert and oriented and speaking in broken sentences. She has clear bilateral breath sounds without wheezing or rhonchi, appropriate heart auscultation without murmur, and a nontender nondistended abdomen. Surgical site on the patient's right PIP examined shows no serous drainage, streaking erythema, or bleeding. No peripheral edema nor unilateral swelling in the LE. Differential diagnosis includes PE, pneumonia, asthma exacerbation, CHF exacerbation, or URI. - Patient has appropriate VBG with a lactate of 2.2, otherwise no acute abnormalities - CTA PE study pending at admission however upon evaluation there is clear bilateral PEs worse in the right lobe. Negative for saddle - EKG shows normal sinus rhythm and rate without ST elevations or abnormal intervals. There is notable Q waves and T wave inversions in lead lll. There is a marked S wave in lead l in comparison to previous EKGs done postoperatively. Given my observation of the patient's CT scan in addition to EKG changes in the setting of SOB, [facility] team was called. After discussion with them they recommended heparin bolus and maintenance infusion. Later conversation included a desire to start the patient on Lovenox when appropriate. Patient was informed of her labs and imaging as well as suspected diagnosis and ultimately admitted to the MICU for further evaluation and management in stable condition. SIGNATURE: DO Reji Lowe JESSICA 08/20/24 0408 SHERRILLEVERETTCHARANJIT LORENZO 08/20/24 0648 EKG Observed: 08/20/2024 2:05 AM Status: F Source: [facility] Ventricular Rate : 94 BPM Atrial Rate : 94 BPM P-R Interval : 128 ms QRS Duration : 90 ms Q-T Interval : 344 ms QTC Calculation(Bazett) : 430 ms Calculated P [place] : 12 degrees Calculated R [place] : 59 degrees Calculated T [place] : -10 degrees NORMAL SINUS RHYTHM POSSIBLE INFERIOR INFARCT , AGE UNDETERMINED ABNORMAL ECG NO PREVIOUS ECGS AVAILABLE Confirmed by SAMANTHA BALDWIN MD ([id number]) on 08/20/2024 12:27:40 PM NAME : BEKAH SALGADO PID : [id number] : 1960 Gender : Female Race : ORD : Procedure Date : Aug 20 2024 02:05:02 Edit Date : Aug 20 2024 12:27:44 Diagnosis: NORMAL SINUS RHYTHM POSSIBLE INFERIOR INFARCT , AGE UNDETERMINED ABNORMAL ECG NO PREVIOUS ECGS AVAILABLE Confirmed by SAMANTHA BALDWIN MD ([id number]) on 08/20/2024 12:27:40 PM Test Reason : Location : 4 : [place] [address] Overread By : SAMANTHA BALDWIN MD Edited By : SAMANTHA BALDWIN MD Referred By : , Acquired by : ZARIA WINCHESTER XR PELVIS 1-2 VIEWS Observed: 08/18/2024 8:45 AM Status: F Source: [facility] Order Comment: Right AP only . Schedule bedside/portable in PACU. Interpreted By: Bekah Haddad, STUDY: XR PELVIS 1-2 VIEWS 08/18/2024 9:15 am INDICATION: Signs/Symptoms:Post op hip COMPARISON: Intraoperative study done earlier today ACCESSION NUMBER(S): [id number] ORDERING CLINICIAN: CLINT CARRERO TECHNIQUE: Portable AP view of the pelvis FINDINGS: There is postoperative change from bipolar right hip arthroplasty with acetabular and femoral components anatomically aligned in the AP projection. No acute osseous abnormality is seen. IMPRESSION: Satisfactory postoperative appearance of the bipolar right hip arthroplasty. Signed by: Bekah Haddad 08/18/2024 9:36 AM Dictation workstation: [id number] XR PELVIS 1-2 VIEWS Observed: 08/18/2024 6:34 AM Status: F Source: [facility] Order Comment: AP only. Sche dule bedside/portable INTRAOP Interpreted By: Zi Sheikh, STUDY: XR PELVIS 1-2 VIEWS; 08/18/2024 8:04 am INDICATION: Signs/Symptoms:INTRAOP CLAUDETTE. COMPARISON: Comparison with pre-surgical pelvis film from 07/22/2024. ACCESSION NUMBER(S): [id number] ORDERING CLINICIAN: CLINT CARRERO TECHNIQUE: Single portable AP intraoperative view of the pelvis was obtained. FINDINGS: Patient is undergoing right hip arthroplasty. There is a prosthetic acetabular component in place and a temporary femoral component in place. There is soft tissue gas overlying the hip. No destructive bone lesion. No acute fracture. IMPRESSION: Ongoing right hip arthroplasty. MACRO: None Signed by: Kit Sheikh 08/18/2024 8:23 AM Dictation workstation: [id number] COMPLETE BLOOD COUNT W AUTO DIFFERENTIAL PANEL Collected: 07/28/2024 3:03 PM Status: F Source: [facility] TYPE CODE TESTS RESULT OUT OF RANGE REFERENCE UNITS LAB 6690-2(LOINC) Leukocytes 5.3 4.4-11.3 x10*3/ uL LAB 64313-7(LOINC ) Erythrocytes.nuc leated/100 leukocytes Result Comment: Not Measured LAB 789-8(LOINC) Erythrocytes 3.81 Low 4.00-5.20 x10* 6/uL LAB 718-7(LOINC) Hemoglobin 11.8 Low 12.0-16.0 g/dL LAB 4544-3(LOINC) Hematocrit 36.2 36.0-46.0 % LAB 787-2(LOINC) Erythrocyte mean corpuscular volume 95 80-100 fL LAB 785-6(LOINC) Erythrocyte mean corpuscular hemoglobin 31.0 26.0-34.0 pg LAB 786-4(LOINC) Erythrocyte mean corpuscular hemoglobin concentration 32.6 32.0-36.0 g/dL LAB 788-0(LOINC) Erythrocyte distribution width 13.3 11.5-14.5 % LAB 777-3(LOINC) Platelets 281 150-450 x10*3/uL LAB 770-8(LOINC) Neutrophils/100 leukocytes 49.6 40.0-80.0 % LAB 16605-6(LOINC ) Granulocytes.imm ature/100 leukocytes 0.0 0.0-0.9 % Result Comment: Immature Gra nulocyte Count (IG) includes promyelocytes, myelocytes and metamyelocytes but does not include bands. Percent differential counts (%) should be interpreted in the context of the absolute cell counts (cells/UL). LAB 736-9(LOINC) Lymphocytes/100 leukocytes 30.5 13.0-44.0 % LAB 5905-5(LOINC) Monocytes/100 leukocytes 7.9 2.0-10.0 % LAB 713-8(LOINC) Eosinophils/100 leukocytes 11.6 0.0-6.0 % LAB 706-2(LOINC) Basophils/100 leukocytes 0.4 0.0-2.0 % LAB 751-8(LOINC) Neutrophils 2.65 1.20-7.70 x10*3 /uL Result Comment: Percent diff erential counts (%) should be interpreted in the context of the absolute cell counts (cells/uL). LAB 12195-2(LOINC ) Granulocytes.imm ature 0.00 0.00-0.70 x10*3/uL LAB 731-0(LOINC) Lymphocytes 1.63 1.20-4.80 x10*3 /uL LAB 742-7(LOINC) Monocytes 0.42 0.10-1.00 x10*3/u L LAB 711-2(LOINC) Eosinophils 0.62 0.00-0.70 x10*3 /uL LAB 704-7(LOINC) Basophils 0.02 0.00-0.10 x10*3/u L Performed By: #### 32575-0 # ### ELA VARGAS L ([id number]) [facility] ([facility]) [address] [place] [address] COMPREHENSIVE METABOLIC 2000 PANEL Collected: 07/28/2024 3:03 PM Status: F Source: [facility] TYPE CODE TESTS RESULT OUT OF RANGE REFERENCE UNITS LAB 2345-7(LOINC) Glucose 98 74-99 mg/dL LAB 2951-2(LOINC) Sodium 142 136-145 mmol/L LAB 2823-3(LOINC) Potassium 4.4 3.5-5.3 mmol/L LAB 2075-0(LOINC) Chloride 107 98-107 mmol/L LAB 2027-9(LOINC) Carbon dioxide 29 21-32 mmo l/L LAB 16796-5(LOINC ) Anion gap 10 10-20 mmol/L LAB 3094-0(LOINC) Urea nitrogen 15 6-23 mg/d L LAB 2160-0(LOINC) Creatinine 0.78 0.50-1.05 mg/dL LAB 21486-6(LOINC ) Glomerular filtration rate/1.73 sq M.predicted 84 >60 mL/min/ 1.73m*2 Result Comment: Calculations of estimated GFR are performed using the 2020 CKD- EPI Study Refit equation without the race variable for the IDMS-Traceable creatinine methods. https://jasn.asnjournals.org/content///ASN.0635039639 LAB 35655-4(LOINC ) Calcium 9.7 8.6-10.3 mg/dL LAB 21135-7(LOINC ) Albumin 4.3 3.4-5.0 g/dL LAB 6768-6(LOINC) Alkaline phosphatase 59 33-136 U/L LAB 2885-2(LOINC) Protein 6.4 6.4-8.2 g/dL LAB 15703-8(LOINC ) Aspartate aminotransferase 15 9-39 U/L LAB 1975-2(LOINC) Bilirubin 0.5 0.0-1.2 mg/dL LAB 1743-4(LOINC) Alanine aminotransferase 16 7-45 U/L Result Comment: Patients jerel ated with Sulfasalazine may generate falsely decreased results for ALT. Performed By: #### 91886-6 # ### ELA Lindsey ([id number]) [facility] ([facility]) [address] [place] [address] HEMOGLOBIN A1C/HEMOGLOBIN.TOTAL Collect ed: 07/28/2024 3:03 PM Status: F Source: [facility] Order Comment: Diagnosis of Diabetes-Adults Non-Diabetic: < or = 5.6% Increased risk for developing diabetes: 5.7-6.4% Diagnostic of diabetes: > or = 6.5% TYPE CODE TESTS RESULT OUT OF RANGE REFERENCE UNITS LAB 4548-4(LOINC ) Hemoglobin A1c/Hemoglob in.total 5.4 See comment % LAB 19006-4(LOIN C) Estimated average glucose 108 Not Established mg/dL Performed By: #### 4548-4 ## ## CHERYL Lindsey ([id number]) [facility] ([facility]) [address] [place] [address] STAPHYLOCOCCUS AUREUS.METHICILLIN RESISTANT ISOLATE Observed: 07/28/2024 2:23 PM Status: F Source: [facility] Test: Staphylococcus aureus/ MRSA colonization, Culture Specimen Source: Nares/Axilla/Groin Specimen Type: Swab Specimen Date: 07/28/2024 1423 Result Date: 07/30/2024 0005 Result Status: Final result Abnormal: No Resulting Lab: [facility] [address] [place] [address] CULTURE No Staphylococcus aureus isolated Performed By: #### 20109-7 # ### CHERYL Lindsey ([id number]) [facility] ([facility]) [address] [place], [place] [id number] ECG 12-LEAD Observed: 07/28/2024 2:18 PM Status: F Source: [facility] Ventricular Rate 67 Atrial Rate 67 P-R Interval 154 QRS Duration 86 Q-T Interval 418 QTC Calculation(Bazett) 441 P [place] 29 R [place] 64 T [place] 54 QRS Count 11 Q Onset 217 P Onset 140 P Offset 180 T Offset 426 QTC Fredericia 434 Diagnosis Normal sinus rhythm Normal ECG Confirmed by Lopez Eng ([id number]) on 08/01/2024 9:27:35 PM XR HIP RIGHT WITH PELVIS WHEN PERFORMED 2 OR 3 VIEWS Observed: 07/22/2024 1:23 PM Status: F Source: [facility] Interpreted By: Salvador Thomas, STUDY: Pelvis and right hip dated 07/22/2024. INDICATION: Signs/Symptoms:pain COMPARISON: None. ACCESSION NUMBER(S): [id number] ORDERING CLINICIAN: JOSH ROCHA TECHNIQUE: AP pelvis and two right hip radiographs. FINDINGS: No fracture or dislocation is evident. There is mild left and moderate to severe right hip degenerative change. Degenerative changes seen of the spine. No soft tissue gas or radiopaque foreign body is evident. IMPRESSION: Degenerative changes without osseous injury evident. Signed by: Eliel Thomas 07/22/2024 1:43 PM Dictation workstation: [id number] ALLERGIES DATE TYPE / CODE NAME / CODE REACTION SEVERITY SOURCE 11/21/2015 DRUG INGREDI/829733 003(SNOMED CT) GLUTAMIC ACID OTHER: SEE [facility] 11/21/2015 DRUG INGREDI/862990 003(SNOMED CT) MONOSODIUM GLUTAMATE OTHER: SEE [facility] 11/21/2015 DRUG INGREDI/101472 003(SNOMED CT) GLUTAMIC ACID [facility] ENCOUNTERS ADMIT/DISCHARGE ACCOUNT NUMBER ADMITTING ENCOUNTER CLASS LOCATION SOURCE 11/23/2024/11/24/19 [id number] [facility]/01/2024/10/02/19 [id number] Ambulatory Building:[facility] [id number] [facility] 10/01/2024/10/02/19 [id number] Ambulatory Building:[facility] [id number] [facility] 10/01/2024/10/02/19 [id number] Ambulatory Building:[facility] [id number] [facility] 08/20/2024/08/23/19 [id number] DEVYN GARCIA [id number]: [facility] 08/19/2024/09/08/19 [id number] Ambulatory Building:[facility] 08/18/2024/08/19/19 [id number] JOSH ROCHA Ambulatory Building:KARYN ORRoom: BEAORPOOLBed : 7756 [facility] 07/28/2024/07/29/19 [id number] Ambulatory Building:[facility] 07/28/2024/07/29/19 [id number] Ambulatory Building:[facility] 07/28/2024/07/29/19 [id number] Ambulatory Building:[facility] [address] 07/22/2024/07/23/19 [id number] Ambulatory Building:[facility] 07/22/2024/07/23/19 [id number] Ambulatory Building:[address] 06/18/2024/06/19/19 [id number] Ambulatory Building:[address] Ambulatory PAYERS ENCOUNTER GUARANTOR PAYER SUBSCRIBER SOURCE 11/23/2024 Primary Insurance:BLUE CARD PPO OOSPolicy Number: [id number] ective Date:1383-23-62Dzj n Name:Adenike LOVETTOB: [id number] [place] [address] [facility] 10/01/2024 BEKAH OCONNORDOB: [place] [address]Vtz: () Primary Insurance:ANTHEMPo licy Number: [id number] ective Date:2007-08-16 LOUIE LOVETTOB: [id number] [place] [address]Yps: () [facility] 10/01/2024 BEKAH OCONNORDOB: [place] [address]Spv: () Primary Insurance:ANTHEMPo licy Number: [id number] ective Date:2007-08-16 LOUIE LOVETTOB: [id number] [place], [place] [address]Zoy: () [facility] 10/01/2024 BEKAH OCONNORDOB: [place], [place] [address]Tgi: () Primary Insurance:ANTHEMPo licy Number: [id number] ective Date:2007-08-16 LOUIE LOVETTOB: [id number] [place], [place] [address]Ztb: () [facility] 08/20/2024 Primary Insurance:MEDICARE APolicy Number: [id number] ve Date:4418-69-45Lth n Name:Mecca ALVAREZ OCONNORDOB: [id number] [place] [address] [facility] 08/20/2024 Secondary Insurance:BLUE CARD PPO OOSPolicy Number: [id number] ective Date:0030-80-63Mwx n Name:Adenike LOVETTOB: [id number] [place] [address] [facility] 08/19/2024 BEKAH OCONNORDOB: [place], [place] [address]Kiy: () Primary Insurance:MEDICARE Policy Number: [id number] Date:2024-04-03 BEKAH OCONNORDOB: [id number] [address] [place], [place] [address]Tsk: () [facility] 08/19/2024 Secondary Insurance:ANTHEMPo licy Number: [id number] ective Date:2007-08-16 LOUIE VERAANDOB: [id number] [place], [place] [address]Xyi: () [facility] 08/18/2024 BEKAH OCONNORDOB: [place], [place] [address]Pgp: () Primary Insurance:ANTHEMPo licy Number: [id number] ective Date:2007-08-16 LOIUE VERAANDOB: [id number] [place], [place] [address]Xwx: () [facility] 07/28/2024 BEKAH OCONNORDOB: [place], [place] [address]Ywy: () Primary Insurance:ANTHEMPo licy Number: [id number] ective Date:2007-08-16 LOUIE VERAANDOB: [id number] [place], [place] [address]Gwf: () [facility] 07/28/2024 BEKAH OCONNORDOB: [place], [place] [address]Pvp: () Primary Insurance:ANTHEMPo licy Number: [id number] ective Date:2007-08-16 LOUIE VERAANDOB: [id number] [place], [place] [address]Xua: () [facility] 07/28/2024 BEKAH OCONNORDOB: [place], [place] [address]Gck: () Primary Insurance:ANTHEMPo licy Number: [id number] ective Date:2007-08-16 LOUIE VERAANDOB: [id number] [place], [place] [address]Bil: () [facility] 07/22/2024 BEKAH OCONNORDOB: [place], [place] [address]Fyj: () Primary Insurance:ANTHEMPo licy Number: [id number] ective Date:2007-08-16 LOUIE VERAANDOB: [id number] [place], [place] [address]Gac: () [facility] 07/22/2024 BEKAH OCONNORDOB: [place], [place] [address]Aaq: () Primary Insurance:ANTHEMPo licy Number: [id number] ective Date:2007-08-16 LOUIE VERAANDOB: [id number] [place], [place] [address]Ble: () [facility] 06/18/2024 BEKAH OCONNORDOB: [place], [place] [address]Qyb: () Primary Insurance:ANTHEMPo licy Number: [id number] ective Date:2007-08-16 LOUIE VERAANDOB: [id number] [place], [place] [address]Ceb: () [facility]
--- NOTE | 2024-11-29 10:59 | VDLE_ITS ---
Reason For Study Reason For Study: RLE Pain / HX DVT RIGHT LEFT GSV is normal. CFV is compressible, spontaneous, phasic, competent, CFV is compressible, spontaneous, phasic, competent and demonstrates normal augmentation. and demonstrates normal augmentation. FV is compressible, spontaneous, phasic, competent and demonstrates normal augmentation. POP V is compressible, spontaneous, phasic, competent and demonstrates normal augmentation. T/P Trunk is compressible. PTV is compressible. RT PerV is compressible. Procedure This is a venous duplex using B-mode, color flow and spectral Doppler. Exam performed in department. The exam was diagnostic. VL/Venous Duplex US, Unilateral Interpretation Summary Deep veins of the right lower extremity are patent and compressible segmentally . There is no evidence of right lower extremity deep vein thrombosis. The right great saphenous vein appears patent a nd compressible segmentally. Ordering Physician: Nayeli Roque Referring Physician: Nayeli Roque Performed By: Teodoro Godfrey RVT
== END | disposition home or self-care (01) ==
LOC: CVS 10:55
PROVIDERS: PCP Internal Medicine; Referring Provider Internal Medicine; Visit Provider Internal Medicine
DX: Z86.718 Personal history of other venous thrombosis and embolism (principal)
CPT/HCPCS: 93971

== ENCOUNTER 2025-01-17 09:00 | Outpatient (RCR) | payer BC, SELFPAY ==
--- NOTE | 2024-09-17 10:38 | HP.PTEVAL ---
Patient's Visit Information Visit Information Visit Information: SHIRIN BLACKWOOD is a 64 year old F referred to Physical Therapy by CLINT CARRERO with a diagnosis of R CLAUDETTE 08/18/24. Date of Evaluation: 09/17/24 Physical Therapist: Guillaume Naylor, PT, ATC Visit Plan Frequency: 1x/Week Duration: 4 Weeks Plan: Pt goes by [facility] and instruct pt on HEP next visit. Continue with gym ex's 1 time per week x 4 weeks Subjective Subjective: DOS: 08/18/24. Pt notes she had a R CLAUDETTE performed at that time. Pt notes she has complications after the surgery as she developed blood clots in her lungs and had to go back to the hospital. Pt reports she is feeling much better now. Pt notes she has to remain on blood thinner for 90 days. Pt notes she lives with her in a 2 story setting which requires her to negotiate stairs daily. Pt reports she did have in home therapy for 4 appointments which they helped her to negotiate stairs. 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 Pt notes she is on her feet for a lot of the work day. Pt denies tingling or numbness at this time secondary to pain. pt reports sleep difficulty at this time secondary to not being able to get comfortable. Pt reports she has been icing and taking tylenol for her pain at this time. 2/10 pain while sitting here at rest, 8/10 pain at worst. Pain R hip pain: Pain Intensity (Out of 10): 2 Pain Intensity Range: 8 Objective Objective: Neuro: B LE sensation is WNL to light touch Gait: Pt ambulates with a cane. slow cadance. MMT: L hip flex= 19, ext= 23 #F; R hip flex= 19, ext= 22 #F ROM: L hip flex= 90, ext= 10; R hip flex= 90, ext= 0 degrees TU.8 sec Balance/Special Test Scores Lower Extremity Functional Score: 22 Goals Goal 1:: Decrease R hip pain x 50% to aid with sleep Goal Time Frame: 4-6 Weeks Goal 2:: Pt will be able to return to work without limitation Goal Time Frame: 4-6 Weeks Goal 3:: I with HEP Goal Time Frame: 4-6 Weeks Rehabilitation Potential Physical Therapy Diagnosis: Pt has R hip pain and difficulty with most IADL's secondary to R CLAUDETTE Rehabilitation Potential: Good Anticipated Interventions Patient/Client Instruction: Educate patient on: Condition and Plan of Care For the Purpose of:: To improve self management Therapeutic Exercise to Include: Strength training, Endurance training, Active ROM and Dynamic Lumbar Stabilization For the Purpose of:: To decrease pain, To improve muscle performance and motor function and To increase tolerance to activity/condition/position Text: Thank you for the opportunity to evaluate your patient. For Medicare and Medicare HMO plans, please review the plan of care and approve it. It will need to be FAXED BACK to us at [phone] for Medicare purposes. For Medicare only, by signing this I certify the plan of care. Please let me know if there are questions or concerns regarding this plan of care. Physician Signature: Date:
--- NOTE | 2025-03-28 11:07 | HP.PT.NRP ---
Patient Information Patient Information: SHIRIN BLACKWOOD was seen in my office for initial evaluation on 09/17/24. The following Plan of Care was established for this patient: POC Established Initial Frequency: 1x/Week Initial Duration: 4 Weeks Anticipated Interventions Patient/Client Instruction: Educate patient on: Condition and Plan of Care For the Purpose of:: To improve self management Therapeutic Exercise to Include: Strength training, Endurance training, Active ROM and Dynamic Lumbar Stabilization For the Purpose of:: To decrease pain, To improve muscle performance and motor function and To increase tolerance to activity/condition/position Last Seen Last Seen: This patient was last seen in our office . Pertinent comments regarding their Physical therapy will appear below: Pt has not returned in greater than 30 days and is discontinued at this time. At this point I will be discontinuing this patient from physical therapy. I would be happy to see this patient again in the future if found appropriate by the physician. Thank you! Guillaume Naylor, PT, ATC Balance/Gait/Functional tests Balance/Special Test Scores Lower Extremity Functional Score: 22
== END 2025-01-17 19:00 | disposition home or self-care (01) ==
LOC: PT 09:00
PROVIDERS: PCP Internal Medicine
DX: M16.11 Unilateral primary osteoarthritis, right hip (principal)
CPT/HCPCS: 97110; 97161